=== PATIENT | female | born 1970 | race Hispanic/Latino ===

== ENCOUNTER 2018-01-25 22:44 | Inpatient (IN) | payer MEDICAID, OTHER ==
[~2018-01-25] VITALS: Ht 157.5 cm; Wt 53.8 kg
[~2018-01-25 22:44] MED LIST: AMLO5TAB2 PO; FURO40TA7 PO; LOVA20TA3 PO; METO50TA18 PO
[2018-01-25 23:54] LABS: BASOPHILS % (AUTO) 0.6 % (0.0-5.0); EOSINOPHILS % (AUTO) 0.7 % (0.0-8.0); HEMATOCRIT 26.9 % (36-48); LYMPHOCYTES % (AUTO) 8.3 % (21.0-51.0); MEAN CORPUSCULAR HEMOGLOBIN 28.7 pg (27.0-33.0); MEAN CORPUSCULAR HGB CONC 32.5 g/dL (32.0-36.0); MEAN CORPUSCULAR VOLUME 88.1 fL (79-99); MONOCYTES % (AUTO) 10.1 % (3.0-13.0); NEUTROPHILS % (AUTO) 80.3 % (40.0-77.0); NUCLEATED RED BLOOD CELLS 0.1 % (0.0-0.19); PLATELET COUNT (AUTO) 414 K/uL (130-400); RED BLOOD CELL COUNT(AUTO) 3.05 MIL/uL (4.00-5.50); RED CELL DISTRIBUTION WIDTH 17.4 % (11.0-15.5); WHITE BLOOD COUNT (AUTO) 10.3 K/uL (4.8-10.8)
[2018-01-26] VITALS (11 sets, daily range): BP systolic 127–148; BP diastolic 66–81
[2018-01-26 00:06] LABS: INR 1.06 (0.85-1.15); PARTIAL THROMBOPLASTIN TIME 24.9 SEC (26.3-35.5); PROTHROMBIN TIME 11.1 SEC (9.6-11.6)
[2018-01-26 00:23] LABS: BILIRUBIN,URINE Negative (NEGATIVE); COLOR,URINE Yellow (YELLOW); GLUCOSE, URINE (UA) TRACE mg/dL (NEGATIVE); KETONES,URINE Negative (NEGATIVE); LEUKOCYTE ESTERASE ,URINE Small (NEGATIVE); NITRATE,URINE Negative (NEGATIVE); OCCULT BLOOD,URINE Negative (NEGATIVE); PH,URINE 7.5 (5.0-8.0); PROTEIN,URINE POS 2+ (NEGATIVE); UROBILINOGEN,URINE 0.2 mg/dL (0.2-1.0)
[2018-01-26 00:24] LABS: APPEARANCE,URINE SLIGHTLY CLOUDY (CLEAR)
[2018-01-26 00:31] LABS: BACTERIA,URINE None Seen /HPF (None Seen); RBC,URINE None Seen /HPF (0-1); WBC,URINE 0-1 /HPF (0-1); YEAST,URINE BUDDING None Seen /HPF (None Seen)
[2018-01-26 00:32] LABS: MUCUS,URINE Few LPF (None Seen); SQUAMOUS EPITHELIAL CELL,UR Few /LPF (0-2)
[2018-01-26 00:33] LABS: AMPHET/METH SCREEN,URINE NEGATIVE (NEGATIVE); BARBITURATE SCREEN, URINE NEGATIVE (NEGATIVE); BENZODIAZEPINES SCREEN,URINE NEGATIVE (NEGATIVE); CANNABINOID SCREEN,URINE NEGATIVE (NEGATIVE); COCAINE SCREEN,URINE NEGATIVE (NEGATIVE); OPIATE SCREEN,URINE NEGATIVE (NEGATIVE); PHENCYCLIDINE SCREEN,URINE NEGATIVE (NEGATIVE)
[2018-01-26 00:38] LABS: ALBUMIN 2.8 g/dL (3.5-5.0); BILIRUBIN,TOTAL 0.8 mg/dL (0.2-1.0); CREATINE KINASE MB 3.7 ng/mL (0.5-3.6); CREATININE 6.7 mg/dL (0.5-1.5); POTASSIUM 5.8 mmol/L (3.5-5.1); TOTAL PROTEIN, SERUM 7.8 g/dL (6.0-8.3)
[2018-01-26] MEDS ORDERED: ACETAMINOPHEN 325 MG TAB PO PRN ×2 (05:00)
[2018-01-26] MEDS ORDERED: HYDRALAZINE HCL 20 MG/ML VIAL IV PRN (06:15)
[2018-01-26] MEDS ORDERED: IPRATROPIUM/ALBUTEROL SULFATE 3 ML SOLUTION IH ONE (07:25)
[2018-01-26] MEDS: IPRATROPIUM/ALBUTEROL SULFATE 3 ML SOLUTION IH SCH ×3 (07:44→18:46)
[2018-01-26] MEDS ORDERED: PANTOPRAZOLE SODIUM 40 MG TABLET.DR PO ONE (08:58)
[2018-01-26] MEDS ORDERED: HEPARIN SODIUM 5000UNIT/ML 1ML VIAL ONE (08:59)
[2018-01-26] MEDS ORDERED: FUROSEMIDE 10 MG/ML 4ML VIAL ONE (08:59)
[2018-01-26] MEDS ORDERED: FUROSEMIDE 10 MG/ML 4ML VIAL IVP SCH (09:00)
[2018-01-26] MEDS ORDERED: SODIUM POLYSTYRENE SULFONATE 15 GM/60 ML ML PO SCH (10:15)
[2018-01-26] MEDS ORDERED: COMPOUND IV MISC 1 EACH IVSOLN MISC PRN (10:15)
[2018-01-26] MEDS ORDERED: EPOETIN ALFA 10,000 UNIT/ML VIAL SQ SCH (10:15)
[2018-01-26] MEDS ORDERED: FURO40TA5 PO (10:53)
[2018-01-26] MEDS ORDERED: AMLO5TAB2 PO (10:53)
[2018-01-26] MEDS ORDERED: LOVA20TA3 PO (10:53)
[2018-01-26] MEDS ORDERED: METO100T14 PO (10:53)
[2018-01-26] MEDS ORDERED: ALBUMIN (HUMAN) 25% 200 ML IV ONE (15:00)
[2018-01-26 16:03] LABS: ALBUMIN,BODY FLUID 1.6 g/dL
[2018-01-26] MEDS: HEPARIN SODIUM 5000UNIT/ML 1ML VIAL SQ SCH ×2 (16:43→20:43)
[2018-01-26] MEDS: IRON SUCROSE COMPLEX 100 MG in SODIUM CHLORIDE 0.9% 50 ML IV SCH (16:44)
[2018-01-26] MEDS: PANTOPRAZOLE SODIUM 40 MG TABLET.DR PO SCH (16:44)
[2018-01-26 16:52] LABS: APPEARANCE BODY FLUID CLEAR (CLEAR); COLOR,BODY FLUID LT YELLOW (LT YELLOW); SPECIMENTYPE,BODY FLUID PARACENTESIS
[2018-01-26 16:53] LABS: BODY FLUID WBC 1285 /cu. mm.; TOTAL VOLUME,BODY FLUID 5200 mL
[2018-01-26 16:54] LABS: BODY FLUID RBC 50 /cu. mm.
[2018-01-26 17:51] LABS: BF BASOPHIL 1 %; BF LYMPHOCYTE 37 %; BF MESOTHELIAL 4 %; BF MONOCYTE 22 %
[2018-01-26] MEDS: FUROSEMIDE 10 MG/ML 4ML VIAL IVP SCH (20:42)
[2018-01-27] VITALS (18 sets, daily range): BP systolic 115–144; BP diastolic 44–74
[2018-01-27] MEDS: IPRATROPIUM/ALBUTEROL SULFATE 3 ML SOLUTION IH SCH ×5 (01:02→23:07)
[2018-01-27] MEDS ORDERED: MORPHINE SULFATE 2 MG/ML 1ML SYG ONE (01:26)
[2018-01-27 06:00] LABS: HEMATOCRIT 24.1 % (36-48); MEAN CORPUSCULAR HEMOGLOBIN 29.4 pg (27.0-33.0); MEAN CORPUSCULAR HGB CONC 33.5 g/dL (32.0-36.0); MEAN CORPUSCULAR VOLUME 87.7 fL (79-99); NUCLEATED RED BLOOD CELLS 0.1 % (0.0-0.19); PLATELET COUNT (AUTO) 332 K/uL (130-400); RED BLOOD CELL COUNT(AUTO) 2.75 MIL/uL (4.00-5.50); RED CELL DISTRIBUTION WIDTH 17.3 % (11.0-15.5); WHITE BLOOD COUNT (AUTO) 8.2 K/uL (4.8-10.8)
[2018-01-27 06:12] LABS: CREATININE 6.8 mg/dL (0.5-1.5); PHOSPHORUS 7.9 mg/dL (2.5-4.9); POTASSIUM 4.9 mmol/L (3.5-5.1)
[2018-01-27 06:15] LABS: LYMPHOCYTES % (MANUAL) 6 % (22-44); MAN.DIFF COMMENT-IMPRESSION MANUAL DIFFERENTIAL; MONOCYTES % (MANUAL) 3 % (2-9); SEGMENTED NEUTROPHILS % 91 % (40-70)
[2018-01-27 06:16] LABS: PLATELET MORPHOLOGY COMMENT ADEQUATE
[2018-01-27 08:10] LABS: HEPATITIS A ANTIBODY IGM Negative (Negative); HEPATITIS B CORE IGM Negative (Negative); HEPATITIS Bs ANTIGEN SCREEN P Negative (Negative)
[2018-01-27] MEDS ORDERED: MEPERIDINE-PF 50 MG/ML SYG ONE (09:48)
[2018-01-27] MEDS ORDERED: MIDAZOLAM HCL 1 MG/ML 2ML VIAL ONE (09:48)
[2018-01-27] MEDS ORDERED: LACTULOSE 20 GM/30 ML UDCUP PO SCH ×3 (11:00→14:00)
[2018-01-27] MEDS: PANTOPRAZOLE SODIUM 40 MG TABLET.DR PO SCH (11:06)
[2018-01-27] MEDS: HEPARIN SODIUM 5000UNIT/ML 1ML VIAL SQ SCH ×2 (11:08→20:55)
[2018-01-27] MEDS: FUROSEMIDE 10 MG/ML 4ML VIAL IVP SCH ×2 (11:09→20:55)
[2018-01-27] MEDS ORDERED: AZITHROMYCIN 500MG+NS 250ML 250 ML IV SCH (12:00)
[2018-01-27] MEDS: IRON SUCROSE COMPLEX 100 MG in SODIUM CHLORIDE 0.9% 50 ML IV SCH (13:08)
[2018-01-27] MEDS: INSULIN HUMULIN R 100 UNIT/ML 3ML SQ SCH ×2 (17:00→20:56)
[2018-01-28] VITALS (20 sets, daily range): BP systolic 129–158; BP diastolic 62–81
[2018-01-28] MEDS ORDERED: ERYTHROMYCIN LACTOBIONATE 500 MG in SODIUM CHLORIDE 0.9% 100 ML IV SCH (05:15)
[2018-01-28 06:08] LABS: HEMATOCRIT 26.9 % (36-48); MEAN CORPUSCULAR HEMOGLOBIN 29.6 pg (27.0-33.0); MEAN CORPUSCULAR HGB CONC 33.8 g/dL (32.0-36.0); MEAN CORPUSCULAR VOLUME 87.5 fL (79-99); PLATELET COUNT (AUTO) 372 K/uL (130-400); RED BLOOD CELL COUNT(AUTO) 3.07 MIL/uL (4.00-5.50); RED CELL DISTRIBUTION WIDTH 17.2 % (11.0-15.5); WHITE BLOOD COUNT (AUTO) 10.9 K/uL (4.8-10.8)
[2018-01-28 06:18] LABS: CREATININE 6.3 mg/dL (0.5-1.5); POTASSIUM 3.9 mmol/L (3.5-5.1)
[2018-01-28] MEDS: IPRATROPIUM/ALBUTEROL SULFATE 3 ML SOLUTION IH SCH ×3 (06:20→18:18)
[2018-01-28] MEDS: INSULIN HUMULIN R 100 UNIT/ML 3ML SQ SCH ×4 (07:30→21:25)
[2018-01-28] MEDS: HEPARIN SODIUM 5000UNIT/ML 1ML VIAL SQ SCH ×2 (09:00→21:00)
[2018-01-28] MEDS: PANTOPRAZOLE SODIUM 40 MG TABLET.DR PO SCH (09:00)
[2018-01-28] MEDS: FUROSEMIDE 10 MG/ML 4ML VIAL IVP SCH ×2 (09:07→21:30)
[2018-01-28] MEDS: IRON SUCROSE COMPLEX 100 MG in SODIUM CHLORIDE 0.9% 50 ML IV SCH (09:29)
[2018-01-28] MEDS ORDERED: PROPOFOL 10 MG/ML 20ML VIAL IV ONE ×2 (13:34)
[2018-01-28] MEDS ORDERED: LACTULOSE 20 GM/30 ML UDCUP PO SCH (15:30)
[2018-01-28] MEDS ORDERED: MAGNESIUM CITRATE 296 ML SOLUTION PO SCH (15:30)
[2018-01-28] MEDS ORDERED: PEG 3350/NA SULF,BICARB,CL/KCL 4000 ML SOLN PO SCH (16:00)
[2018-01-28] MEDS: MORPHINE SULFATE 2 MG/ML 1ML SYG IVP PRN ×2 (17:36→21:59)
[2018-01-28] MEDS ORDERED: ONDANSETRON HCL MDV 20ML 2 MG/ML VIAL ONE (22:53)
[2018-01-28] MEDS: ONDANSETRON HCL 4 MG/2 ML VIAL IV PRN (22:59)
[2018-01-29] MEDS: IPRATROPIUM/ALBUTEROL SULFATE 3 ML SOLUTION IH SCH ×4 (00:04→18:16)
[2018-01-29 03:45] VITALS: BP 138/74
[2018-01-29 04:35] LABS: HEMATOCRIT 25.9 % (36-48); MEAN CORPUSCULAR HEMOGLOBIN 28.7 pg (27.0-33.0); MEAN CORPUSCULAR HGB CONC 32.8 g/dL (32.0-36.0); MEAN CORPUSCULAR VOLUME 87.5 fL (79-99); PLATELET COUNT (AUTO) 373 K/uL (130-400); RED BLOOD CELL COUNT(AUTO) 2.96 MIL/uL (4.00-5.50)
[2018-01-29 04:55] LABS: CREATININE 5.6 mg/dL (0.5-1.5); POTASSIUM 3.6 mmol/L (3.5-5.1)
[2018-01-29] MEDS: ONDANSETRON HCL 4 MG/2 ML VIAL IV PRN (06:00)
[2018-01-29] MEDS: INSULIN HUMULIN R 100 UNIT/ML 3ML SQ SCH ×4 (06:53→20:56)
[2018-01-29 08:00] VITALS: BP 151/73
[2018-01-29] MEDS: PANTOPRAZOLE SODIUM 40 MG TABLET.DR PO SCH (09:00)
[2018-01-29] MEDS: HEPARIN SODIUM 5000UNIT/ML 1ML VIAL SQ SCH ×2 (09:00→21:00)
[2018-01-29] MEDS ORDERED: MORPHINE SULFATE 4 MG/1ML SYG ONE ×2 (10:27→16:06)
[2018-01-29] MEDS: IRON SUCROSE COMPLEX 100 MG in SODIUM CHLORIDE 0.9% 50 ML IV SCH (10:39)
[2018-01-29] MEDS: FUROSEMIDE 10 MG/ML 4ML VIAL IVP SCH ×2 (10:39→20:53)
[2018-01-29] MEDS: MORPHINE SULFATE 2 MG/ML 1ML SYG IVP PRN ×3 (10:40→20:56)
[2018-01-29 11:00] VITALS: BP 146/68
[2018-01-29 16:00] VITALS: BP 127/68
[2018-01-29] MEDS ORDERED: PEG 3350/NA SULF,BICARB,CL/KCL 4000 ML SOLN PO SCH (17:00)
[2018-01-29 19:30] VITALS: BP 163/80
[2018-01-29 23:15] VITALS: BP 154/76
[2018-01-30] MEDS: IPRATROPIUM/ALBUTEROL SULFATE 3 ML SOLUTION IH SCH ×5 (00:07→23:46)
[2018-01-30 03:15] VITALS: BP 142/76
[2018-01-30 04:13] LABS: HEMATOCRIT 24.9 % (36-48); MEAN CORPUSCULAR HEMOGLOBIN 29.4 pg (27.0-33.0); MEAN CORPUSCULAR HGB CONC 33.4 g/dL (32.0-36.0); MEAN CORPUSCULAR VOLUME 88.1 fL (79-99); PLATELET COUNT (AUTO) 351 K/uL (130-400); RED BLOOD CELL COUNT(AUTO) 2.83 MIL/uL (4.00-5.50); RED CELL DISTRIBUTION WIDTH 17.8 % (11.0-15.5); WHITE BLOOD COUNT (AUTO) 10.7 K/uL (4.8-10.8)
[2018-01-30 04:19] LABS: CREATININE 5.2 mg/dL (0.5-1.5); POTASSIUM 3.8 mmol/L (3.5-5.1)
[2018-01-30] MEDS: MORPHINE SULFATE 2 MG/ML 1ML SYG IVP PRN ×2 (05:08→21:58)
[2018-01-30 07:12] LABS: BAND NEUTROPHILS % (MANUAL) 1 % (0-2); EOSINOPHILS % (MANUAL) 1 % (1-6); LYMPHOCYTES % (MANUAL) 8 % (22-44); MAN.DIFF COMMENT-IMPRESSION MANUAL DIFFERENTIAL; MONOCYTES % (MANUAL) 5 % (2-9); SEGMENTED NEUTROPHILS % 85 % (40-70)
[2018-01-30 07:15] LABS: PLATELET MORPHOLOGY COMMENT ADEQUATE
[2018-01-30] MEDS: INSULIN HUMULIN R 100 UNIT/ML 3ML SQ SCH ×4 (07:30→21:00)
[2018-01-30 08:00] VITALS: BP 139/72
[2018-01-30] MEDS: HEPARIN SODIUM 5000UNIT/ML 1ML VIAL SQ SCH ×2 (09:00→21:57)
[2018-01-30] MEDS: IRON SUCROSE COMPLEX 100 MG in SODIUM CHLORIDE 0.9% 50 ML IV SCH (10:02)
[2018-01-30] MEDS: FUROSEMIDE 10 MG/ML 4ML VIAL IVP SCH ×2 (10:03→21:58)
[2018-01-30 11:00] VITALS: BP 143/65
[2018-01-30 16:00] VITALS: BP 158/76
[2018-01-30] MEDS ORDERED: LACTULOSE 20 GM/30 ML UDCUP PO SCH (16:00)
[2018-01-30] MEDS ORDERED: PEG 3350/NA SULF,BICARB,CL/KCL 4000 ML SOLN PO SCH (16:00)
[2018-01-30] MEDS: PANTOPRAZOLE SODIUM 40 MG TABLET.DR PO SCH (16:47)
[2018-01-30] MEDS: BISACODYL 5 MG TABLET.DR PO SCH (18:00)
[2018-01-30 20:00] VITALS: BP 144/71
[2018-01-30 23:50] VITALS: BP 143/71
[2018-01-31 04:00] VITALS: BP 157/69
[2018-01-31 04:12] LABS: HEMATOCRIT 22.8 % (36-48); MEAN CORPUSCULAR HEMOGLOBIN 28.8 pg (27.0-33.0); MEAN CORPUSCULAR HGB CONC 32.8 g/dL (32.0-36.0); MEAN CORPUSCULAR VOLUME 87.9 fL (79-99); PLATELET COUNT (AUTO) 316 K/uL (130-400); RED CELL DISTRIBUTION WIDTH 17.8 % (11.0-15.5); WHITE BLOOD COUNT (AUTO) 11.2 K/uL (4.8-10.8)
[2018-01-31 04:20] LABS: CREATININE 5.1 mg/dL (0.5-1.5); POTASSIUM 3.3 mmol/L (3.5-5.1)
[2018-01-31 04:35] LABS: LYMPHOCYTES % (MANUAL) 10 % (22-44); MAN.DIFF COMMENT-IMPRESSION MANUAL DIFFERENTIAL; MONOCYTES % (MANUAL) 1 % (2-9); PLATELET MORPHOLOGY COMMENT ADEQUATE; SEGMENTED NEUTROPHILS % 89 % (40-70)
[2018-01-31] MEDS: INSULIN HUMULIN R 100 UNIT/ML 3ML SQ SCH ×3 (06:10→16:18)
[2018-01-31] MEDS: IPRATROPIUM/ALBUTEROL SULFATE 3 ML SOLUTION IH SCH ×2 (06:18→11:32)
[2018-01-31 08:00] VITALS: BP 131/76
[2018-01-31] MEDS: IRON SUCROSE COMPLEX 100 MG in SODIUM CHLORIDE 0.9% 50 ML IV SCH (09:22)
[2018-01-31] MEDS: PANTOPRAZOLE SODIUM 40 MG TABLET.DR PO SCH (09:25)
[2018-01-31] MEDS: FUROSEMIDE 10 MG/ML 4ML VIAL IVP SCH (09:25)
[2018-01-31] MEDS: HEPARIN SODIUM 5000UNIT/ML 1ML VIAL SQ SCH (09:31)
[2018-01-31] MEDS: MORPHINE SULFATE 2 MG/ML 1ML SYG IVP PRN (09:47)
[2018-01-31 11:00] VITALS: BP 133/79
[2018-01-31 16:00] VITALS: BP 152/70
[2018-01-31] MEDS: BISACODYL 5 MG TABLET.DR PO SCH (16:19)
[2018-03-25] MEDS ORDERED: AMLO5TAB2 PO (03:23)
== END 2018-01-31 18:50 | disposition home or self-care (01) | DRG 187 ==
LOC: EDH 22:44 → EDHIP 22:45 → 3BH 01-26 10:45
PROVIDERS: ADMIT Family Medicine; ATTEND Family Medicine
PROC: 0W9G3ZZ Drainage of Peritoneal Cavity, Percutaneous Approach (ICD-10-PCS; 2018-01-26)
PROC: 0DJ08ZZ Inspection of Upper Intestinal Tract, Via Natural or Artificial Opening Endoscopic (ICD-10-PCS; principal; 2018-01-27)
DX: J90 Pleural effusion, not elsewhere classified (principal); N17.9 Acute kidney failure, unspecified; E11.21 Type 2 diabetes mellitus with diabetic nephropathy; R18.8 Other ascites; E87.1 Hypo-osmolality and hyponatremia; E87.5 Hyperkalemia; I12.0 Hypertensive chronic kidney disease with stage 5 chronic kidney disease or end stage renal disease; N18.5 Chronic kidney disease, stage 5; K74.60 Unspecified cirrhosis of liver; K75.81 Nonalcoholic steatohepatitis (NASH); Z53.20 Procedure and treatment not carried out because of patient's decision for unspecified reasons; D50.9 Iron deficiency anemia, unspecified; E11.22 Type 2 diabetes mellitus with diabetic chronic kidney disease; E87.70 Fluid overload, unspecified; I25.10 Atherosclerotic heart disease of native coronary artery without angina pectoris; K27.9 Peptic ulcer, site unspecified, unspecified as acute or chronic, without hemorrhage or perforation; Z82.49 Family history of ischemic heart disease and other diseases of the circulatory system; Z83.3 Family history of diabetes mellitus; Z79.84 Long term (current) use of oral hypoglycemic drugs
CPT/HCPCS: 36415; 49083; 71046; 74176; 76700; 80048; 80053; 80074; 80305; 81001; 82042; 82140; 82550; 82553; 82945; 82948; 83615; 83690; 83735; 83874; 84100; 84157; 84484; 85025; 85027; 85610; 85730; 87071; 87205; 89051; 93005; 94640; 94664; 99152; J0456; J0885; J1364; J1644; J1756; J1815; J1940; J2175; J2250; J2270; J2704; P9046

== ENCOUNTER 2018-02-25 00:50 | Inpatient (IN) | payer MEDICAID, OTHER ==
[2018-02-25] VITALS (8 sets, daily range): BP systolic 131–143; BP diastolic 62–77
[~2018-02-25] VITALS: Ht 157.5 cm; Wt 66.1 kg
[~2018-02-25 00:50] MED LIST changes: +FURO40TA5 PO; -FURO40TA7 PO; +METO100T14 PO; -METO50TA18 PO
[2018-02-25 02:04] LABS: BASOPHILS % (AUTO) 1.1 % (0.0-5.0); EOSINOPHILS % (AUTO) 2.7 % (0.0-8.0); HEMATOCRIT 29.8 % (36-48); LYMPHOCYTES % (AUTO) 12.5 % (21.0-51.0); MEAN CORPUSCULAR HEMOGLOBIN 30.5 pg (27.0-33.0); MEAN CORPUSCULAR HGB CONC 32.5 g/dL (32.0-36.0); MEAN CORPUSCULAR VOLUME 93.7 fL (79-99); NEUTROPHILS % (AUTO) 72.7 % (40.0-77.0); NUCLEATED RED BLOOD CELLS 0.1 % (0.0-0.19); PLATELET COUNT (AUTO) 224 K/uL (130-400); RED BLOOD CELL COUNT(AUTO) 3.18 MIL/uL (4.00-5.50); RED CELL DISTRIBUTION WIDTH 18.9 % (11.0-15.5); WHITE BLOOD COUNT (AUTO) 7.2 K/uL (4.8-10.8)
[2018-02-25 02:19] LABS: BILIRUBIN,TOTAL 0.7 mg/dL (0.2-1.0); CREATININE 4.8 mg/dL (0.5-1.5)
[2018-02-25 02:21] LABS: POTASSIUM 6.2 mmol/L (3.5-5.1)
[2018-02-25 02:52] LABS: APPEARANCE,URINE Clear (CLEAR); BILIRUBIN,URINE Negative (NEGATIVE); COLOR,URINE Yellow (YELLOW); GLUCOSE, URINE (UA) Negative (NEGATIVE); KETONES,URINE Negative (NEGATIVE); LEUKOCYTE ESTERASE ,URINE Negative (NEGATIVE); NITRATE,URINE Negative (NEGATIVE); OCCULT BLOOD,URINE Trace (NEGATIVE); PROTEIN,URINE POS 2+ (NEGATIVE); UROBILINOGEN,URINE 0.2 mg/dL (0.2-1.0)
[2018-02-25] MEDS ORDERED: SODIUM POLYSTYRENE SULFONATE 15 GM/60 ML ML ONE (03:07)
[2018-02-25 03:09] LABS: BACTERIA,URINE Rare /HPF (None Seen); RBC,URINE None Seen /HPF (0-1); WBC,URINE 0-1 /HPF (0-1)
[2018-02-25] MEDS ORDERED: FUROSEMIDE 10 MG/ML 4ML VIAL ONE (03:58)
[2018-02-25] MEDS ORDERED: DEXTROSE 50%-WATER 50 ML DISP.SYRIN IV PRN (04:45)
[2018-02-25] MEDS ORDERED: ONDANSETRON HCL MDV 20ML 2 MG/ML VIAL IVP PRN (04:45)
[2018-02-25] MEDS ORDERED: HYDRALAZINE HCL 20 MG/ML VIAL IV PRN (04:45)
[2018-02-25] MEDS ORDERED: GLUCAGON 1MG KIT 1 MG ML IM PRN (04:45)
[2018-02-25] MEDS: HEPARIN SODIUM 5000UNIT/ML 1ML VIAL SQ SCH ×2 (05:00→17:00)
[2018-02-25] MEDS ORDERED: HEPARIN SODIUM 5000UNIT/ML 1ML VIAL ONE (05:20)
[2018-02-25 07:30] LABS: ALBUMIN 2.7 g/dL (3.5-5.0); BILIRUBIN,DIRECT 0.2 mg/dL (0.0-0.3); BILIRUBIN,TOTAL 0.7 mg/dL (0.2-1.0); TOTAL PROTEIN, SERUM 7.1 g/dL (6.0-8.3)
[2018-02-25] MEDS: INSULIN HUMULIN R 100 UNIT/ML 3ML SQ SCH ×4 (07:30→20:50)
[2018-02-25] MEDS ORDERED: FAMOTIDINE 20MG TAB 20 MG TAB ONE (08:35)
[2018-02-25] MEDS ORDERED: METOPROLOL TARTRATE 50 MG TAB ONE (08:36)
[2018-02-25] MEDS ORDERED: AMLODIPINE BESYLATE 5 MG TAB PO ONE (08:36)
[2018-02-25] MEDS: AMLODIPINE BESYLATE 5 MG TAB PO SCH (09:00)
[2018-02-25] MEDS ORDERED: PANTOPRAZOLE 40 MG/VIAL IVP SCH (09:00)
[2018-02-25] MEDS: LOVASTATIN 20 MG PO SCH (09:00)
[2018-02-25] MEDS: METOPROLOL TARTRATE 50 MG TAB PO SCH ×2 (09:00→20:50)
[2018-02-25] MEDS: FOLIC ACID/VITAMIN B COMP W-C 1 MG CAPSULE PO SCH (09:00)
[2018-02-25] MEDS: PANTOPRAZOLE SODIUM 40 MG TABLET.DR PO SCH (09:00)
[2018-02-25 09:58] LABS: CREATININE 4.7 mg/dL (0.5-1.5); POTASSIUM 5.9 mmol/L (3.5-5.1)
[2018-02-25 10:31] LABS: INR 1.05 (0.85-1.15); PARTIAL THROMBOPLASTIN TIME 25.6 SEC (26.3-35.5); PROTHROMBIN TIME 10.8 SEC (9.6-11.6)
[2018-02-25] MEDS ORDERED: LIDOCAINE HCL 1% MDV 50ML VIAL ONE (10:35)
[2018-02-25] MEDS: FUROSEMIDE 10 MG/ML 2ML VIAL IV SCH (13:00)
[2018-02-25 13:37] LABS: APPEARANCE BODY FLUID CLEAR (CLEAR); BODY FLUID WBC 454 /cu. mm.; COLOR,BODY FLUID YELLOW (LT YELLOW); SPECIMENTYPE,BODY FLUID ASCITES; TOTAL VOLUME,BODY FLUID 4000 mL
[2018-02-25 13:38] LABS: BODY FLUID RBC 77 /cu. mm.
[2018-02-25 13:43] LABS: BF BASOPHIL 1 %; BF LYMPHOCYTE 40 %; BF MESOTHELIAL 53 %; BF MONOCYTE 3 %
[2018-02-25 14:10] LABS: CREATININE 4.7 mg/dL (0.5-1.5); POTASSIUM 5.9 mmol/L (3.5-5.1)
[2018-02-25] MEDS: ACETAMINOPHEN 325 MG TAB PO PRN (20:50)
[2018-02-26 00:25] VITALS: BP 146/75
[2018-02-26 00:27] LABS: HEMATOCRIT 25.1 % (36-48)
[2018-02-26 00:37] LABS: CREATININE 3.5 mg/dL (0.5-1.5)
[2018-02-26 00:46] LABS: HEMOGLOBIN A1C 7.9 % (4.0-6.0)
[2018-02-26 01:11] LABS: FERRITIN 264 ng/mL (15-150); IRON, SERUM 35 mcg/dL (50-170)
[2018-02-26] MEDS: FUROSEMIDE 10 MG/ML 2ML VIAL IV SCH ×2 (02:15→13:00)
[2018-02-26] MEDS: ACETAMINOPHEN 325 MG TAB PO PRN (02:22)
[2018-02-26 04:20] VITALS: BP 148/69
[2018-02-26] MEDS: HEPARIN SODIUM 5000UNIT/ML 1ML VIAL SQ SCH ×2 (05:28→18:31)
[2018-02-26] MEDS: INSULIN HUMULIN R 100 UNIT/ML 3ML SQ SCH ×3 (05:55→16:30)
[2018-02-26 06:21] LABS: HEMATOCRIT 25.4 % (36-48); MEAN CORPUSCULAR HEMOGLOBIN 29.9 pg (27.0-33.0); MEAN CORPUSCULAR HGB CONC 32.4 g/dL (32.0-36.0); MEAN CORPUSCULAR VOLUME 92.3 fL (79-99); PLATELET COUNT (AUTO) 173 K/uL (130-400); RED BLOOD CELL COUNT(AUTO) 2.76 MIL/uL (4.00-5.50); WHITE BLOOD COUNT (AUTO) 5.7 K/uL (4.8-10.8)
[2018-02-26] MEDS ORDERED: HEPARIN SODIUM 5000UNIT/ML 1ML VIAL IJ PRN (06:30)
[2018-02-26] MEDS ORDERED: ALBUMIN (HUMAN) 25% 100 ML IV PRN (06:30)
[2018-02-26] MEDS ORDERED: 0.9% SODIUM CHLORIDE 250 ML IV BAG IV PRN (06:30)
[2018-02-26] MEDS ORDERED: SODIUM CHLORIDE 0.9% 1000ML 1,000 ML IV PRN (06:30)
[2018-02-26 06:39] LABS: CREATININE 3.3 mg/dL (0.5-1.5); POTASSIUM 4.1 mmol/L (3.5-5.1)
[2018-02-26 08:34] VITALS: BP 148/72
[2018-02-26] MEDS: LOVASTATIN 20 MG PO SCH (09:00)
[2018-02-26] MEDS: FOLIC ACID/VITAMIN B COMP W-C 1 MG CAPSULE PO SCH (09:23)
[2018-02-26] MEDS: PANTOPRAZOLE SODIUM 40 MG TABLET.DR PO SCH (09:23)
[2018-02-26] MEDS: AMLODIPINE BESYLATE 5 MG TAB PO SCH (09:23)
[2018-02-26] MEDS: METOPROLOL TARTRATE 50 MG TAB PO SCH (09:23)
[2018-02-26 12:02] VITALS: BP 119/87
[2018-02-26] MEDS ORDERED: LEVOFLOXACIN 500 MG/D5W 100 ML 100 ML IV SCH (12:30)
[2018-02-26] MEDS ORDERED: LEVO250T2 PO (12:34)
[2018-02-26 16:58] VITALS: BP 146/72
[2018-02-27 08:25] LABS: HEPATITIS B CORE IGM Negative (Negative); HEPATITIS Bs ANTIGEN SCREEN P Negative (Negative)
[2018-03-25] MEDS ORDERED: AMLO5TAB2 PO (03:23)
== END 2018-02-26 18:45 | disposition home or self-care (01) | DRG 683 ==
LOC: EDH 00:50 → EDHIP 00:51 → 3AH 11:52
PROVIDERS: ADMIT Family Medicine; ATTEND Family Medicine
PROC: 02H633Z Insertion of Infusion Device into Right Atrium, Percutaneous Approach (ICD-10-PCS; principal; 2018-02-25)
PROC: B244ZZZ Ultrasonography of Right Heart (ICD-10-PCS; 2018-02-25)
PROC: 5A1D70Z Performance of Urinary Filtration, Intermittent, Less than 6 Hours Per Day (ICD-10-PCS; 2018-02-25)
PROC: 0W9G3ZZ Drainage of Peritoneal Cavity, Percutaneous Approach (ICD-10-PCS; 2018-02-25)
PROC: 5A1D70Z Performance of Urinary Filtration, Intermittent, Less than 6 Hours Per Day (ICD-10-PCS; 2018-02-26)
DX: N17.9 Acute kidney failure, unspecified (principal); J90 Pleural effusion, not elsewhere classified; E11.22 Type 2 diabetes mellitus with diabetic chronic kidney disease; R18.8 Other ascites; E87.5 Hyperkalemia; I12.0 Hypertensive chronic kidney disease with stage 5 chronic kidney disease or end stage renal disease; E87.70 Fluid overload, unspecified; N18.5 Chronic kidney disease, stage 5; K75.81 Nonalcoholic steatohepatitis (NASH); I25.10 Atherosclerotic heart disease of native coronary artery without angina pectoris; D63.8 Anemia in other chronic diseases classified elsewhere; Z99.2 Dependence on renal dialysis
CPT/HCPCS: 36415; 36556; 49083; 71045; 71046; 76700; 76705; 80048; 80053; 80061; 80076; 81001; 82140; 82565; 82728; 82948; 83036; 83540; 83690; 83880; 84484; 84520; 85014; 85018; 85025; 85027; 85610; 85730; 86701; 86704; 86705; 86706; 87071; 87205; 87340; 87390; 87520; 89051; 90935; 93005; C1752; J1644; J1940; J1956; J3490

== ENCOUNTER 2018-02-28 18:39 | Emergency (ER) | payer MEDICAID, OTHER ==
[~2018-02-28 18:39] MED LIST changes: +LEVO250T2 PO
[2018-03-25] MEDS ORDERED: AMLO5TAB2 PO (03:23)
== END 2018-02-28 19:30 | disposition home or self-care (01) ==
LOC: EDH 18:39
DX: Z48.00 Encounter for change or removal of nonsurgical wound dressing (principal); E11.22 Type 2 diabetes mellitus with diabetic chronic kidney disease; I12.9 Hypertensive chronic kidney disease with stage 1 through stage 4 chronic kidney disease, or unspecified chronic kidney disease; N18.9 Chronic kidney disease, unspecified; I25.10 Atherosclerotic heart disease of native coronary artery without angina pectoris
CPT/HCPCS: 99281

== ENCOUNTER 2018-03-17 16:11 | Inpatient (IN) | payer MEDICAID, OTHER ==
[~2018-03-17] VITALS: Ht 144.8 cm; Wt 65.8 kg
[2018-03-17] MEDS ORDERED: HYDROMORPHONE HCL 0.5 MG/0.5 ML ML ONE (16:41)
[2018-03-17] MEDS ORDERED: ONDANSETRON HCL 4 MG/2 ML VIAL ONE (16:41)
[2018-03-17 16:47] LABS: BASOPHILS % (AUTO) 0.6 % (0.0-5.0); EOSINOPHILS % (AUTO) 0.5 % (0.0-8.0); HEMATOCRIT 27.5 % (36-48); LYMPHOCYTES % (AUTO) 3.3 % (21.0-51.0); MEAN CORPUSCULAR HEMOGLOBIN 28.7 pg (27.0-33.0); MEAN CORPUSCULAR HGB CONC 31.7 g/dL (32.0-36.0); MEAN CORPUSCULAR VOLUME 90.4 fL (79-99); MONOCYTES % (AUTO) 6.2 % (3.0-13.0); NEUTROPHILS % (AUTO) 89.4 % (40.0-77.0); PLATELET COUNT (AUTO) 378 K/uL (130-400); RED BLOOD CELL COUNT(AUTO) 3.04 MIL/uL (4.00-5.50); RED CELL DISTRIBUTION WIDTH 17.5 % (11.0-15.5); WHITE BLOOD COUNT (AUTO) 17.7 K/uL (4.8-10.8)
[2018-03-17] MEDS ORDERED: HYDROMORPHONE 1 MG/1 ML AMP ONE (17:02)
[2018-03-17 17:07] LABS: ALBUMIN 1.8 g/dL (3.5-5.0); BILIRUBIN,TOTAL 3.2 mg/dL (0.2-1.0); CREATININE 6.7 mg/dL (0.5-1.5); POTASSIUM 5.1 mmol/L (3.5-5.1); TOTAL PROTEIN, SERUM 6.8 g/dL (6.0-8.3)
[2018-03-17 17:13] LABS: INR 1.09 (0.85-1.15); PARTIAL THROMBOPLASTIN TIME 29.8 SEC (26.3-35.5); PROTHROMBIN TIME 11.4 SEC (9.6-11.6)
[2018-03-17] MEDS ORDERED: ALBUMIN (HUMAN) 25% 100 ML IV ONE (20:14)
[2018-03-17 21:05] VITALS: BP 90/61
[2018-03-17] MEDS ORDERED: DEXTROSE 50%-WATER 50 ML DISP.SYRIN IV PRN (22:00)
[2018-03-17] MEDS ORDERED: GLUCAGON 1MG KIT 1 MG ML IM PRN (22:00)
[2018-03-17] MEDS ORDERED: PHARMACY COMMUNICATION MISC SCH (23:45)
[2018-03-17] MEDS ORDERED: ONDANSETRON HCL MDV 20ML 2 MG/ML VIAL IVP PRN (23:45)
[2018-03-18] VITALS (13 sets, daily range): BP systolic 92–120; BP diastolic 39–61
[2018-03-18] MEDS ORDERED: ATOR10 PO (00:39)
[2018-03-18] MEDS ORDERED: FURO40TA5 PO (00:39)
[2018-03-18] MEDS ORDERED: METO100T14 PO (00:39)
[2018-03-18] MEDS: IPRATROPIUM/ALBUTEROL SULFATE 3 ML SOLUTION IH SCH ×5 (01:53→22:53)
[2018-03-18] MEDS: HYDROMORPHONE 1 MG/1 ML AMP IVP PRN ×2 (03:12→18:52)
[2018-03-18] MEDS: ZOSYN 3.375GM+NS 50ML 50 ML IV SCH ×3 (03:12→23:43)
[2018-03-18 06:26] LABS: HEMATOCRIT 21.9 % (36-48); MEAN CORPUSCULAR HEMOGLOBIN 29.5 pg (27.0-33.0); MEAN CORPUSCULAR HGB CONC 33.6 g/dL (32.0-36.0); MEAN CORPUSCULAR VOLUME 87.9 fL (79-99); NUCLEATED RED BLOOD CELLS 0.1 % (0.0-0.19); PLATELET COUNT (AUTO) 358 K/uL (130-400); RED BLOOD CELL COUNT(AUTO) 2.49 MIL/uL (4.00-5.50); RED CELL DISTRIBUTION WIDTH 17.7 % (11.0-15.5); WHITE BLOOD COUNT (AUTO) 15.8 K/uL (4.8-10.8)
[2018-03-18 06:34] LABS: ALBUMIN 1.9 g/dL (3.5-5.0); BILIRUBIN,TOTAL 2.9 mg/dL (0.2-1.0); CREATININE 6.8 mg/dL (0.5-1.5); POTASSIUM 5.5 mmol/L (3.5-5.1); TOTAL PROTEIN, SERUM 6.3 g/dL (6.0-8.3)
[2018-03-18] MEDS: INSULIN HUMULIN R 100 UNIT/ML 3ML SQ SCH ×4 (07:04→21:00)
[2018-03-18] MEDS ORDERED: HEPARIN SODIUM 5000UNIT/ML 1ML VIAL SQ SCH (09:00)
[2018-03-18] MEDS: FAMOTIDINE 20MG TAB 20 MG TAB PO SCH (10:12)
[2018-03-18] MEDS ORDERED: VANCOMYCIN PROTOCOL PER PHARMACY IV SCH (10:45)
[2018-03-18] MEDS ORDERED: SODIUM POLYSTYRENE SULFONATE 15 GM/60 ML ML ONE (11:02)
[2018-03-18] MEDS ORDERED: COMPOUND IV REFRIGERATED 1 EACH IVSOLN MISC PRN (11:45)
[2018-03-18] MEDS ORDERED: VANCOMYCIN 1.25 GM in SODIUM CHLORIDE 0.9% 250 ML IV ONE (12:00)
[2018-03-18] MEDS ORDERED: SODIUM POLYSTYRENE SULFONATE 15 GM/60 ML ML PO ONE (12:20)
[2018-03-18 14:05] LABS: APPEARANCE,URINE Cloudy (CLEAR); BILIRUBIN,URINE Negative (NEGATIVE); COLOR,URINE Yellow (YELLOW); GLUCOSE, URINE (UA) Negative (NEGATIVE); KETONES,URINE Negative (NEGATIVE); LEUKOCYTE ESTERASE ,URINE Moderate (NEGATIVE); NITRATE,URINE Negative (NEGATIVE); OCCULT BLOOD,URINE Large (NEGATIVE); PROTEIN,URINE POS 2+ (NEGATIVE); UROBILINOGEN,URINE 0.2 mg/dL (0.2-1.0)
[2018-03-18 14:27] LABS: BACTERIA,URINE Many /HPF (None Seen); RBC,URINE 0-1 /HPF (0-1); SQUAMOUS EPITHELIAL CELL,UR Moderate /HPF (0-2)
[2018-03-18] MEDS ORDERED: SODIUM POLYSTYRENE SULFONATE 15 GM/60 ML ML PO SCH (15:30)
[2018-03-18] MEDS: FUROSEMIDE 10 MG/ML 4ML VIAL IV SCH (18:44)
[2018-03-18] MEDS ORDERED: KETOROLAC TROMETHAMINE 15MG/ML IV PRN (23:15)
[2018-03-19] MEDS: HYDROMORPHONE 1 MG/1 ML AMP IVP PRN ×2 (01:19→13:38)
[2018-03-19] MEDS: IPRATROPIUM/ALBUTEROL SULFATE 3 ML SOLUTION IH SCH ×3 (02:18→10:00)
[2018-03-19] MEDS: FUROSEMIDE 10 MG/ML 4ML VIAL IV SCH ×2 (02:31→13:38)
[2018-03-19 04:00] VITALS: BP 116/55
[2018-03-19 05:06] LABS: BASOPHILS % (AUTO) 0.6 % (0.0-5.0); EOSINOPHILS % (AUTO) 0.3 % (0.0-8.0); LYMPHOCYTES % (AUTO) 4.2 % (21.0-51.0); MEAN CORPUSCULAR HEMOGLOBIN 30.3 pg (27.0-33.0); MEAN CORPUSCULAR HGB CONC 34.1 g/dL (32.0-36.0); MEAN CORPUSCULAR VOLUME 88.6 fL (79-99); MONOCYTES % (AUTO) 8.3 % (3.0-13.0); NEUTROPHILS % (AUTO) 86.6 % (40.0-77.0); NUCLEATED RED BLOOD CELLS 0.1 % (0.0-0.19); PLATELET COUNT (AUTO) 346 K/uL (130-400); RED BLOOD CELL COUNT(AUTO) 2.31 MIL/uL (4.00-5.50); RED CELL DISTRIBUTION WIDTH 17.9 % (11.0-15.5); WHITE BLOOD COUNT (AUTO) 14.9 K/uL (4.8-10.8)
[2018-03-19 05:13] LABS: INR 1.05 (0.85-1.15); PARTIAL THROMBOPLASTIN TIME 34.8 SEC (26.3-35.5)
[2018-03-19 05:20] LABS: HEMATOCRIT 20.5 % (36-48)
[2018-03-19 05:28] LABS: CREATININE 7.2 mg/dL (0.5-1.5); MAGNESIUM 2.1 mg/dL (1.80-2.40); PHOSPHORUS 7.3 mg/dL (2.5-4.9); POTASSIUM 4.9 mmol/L (3.5-5.1); URIC ACID 8.5 mg/dL (2.6-7.2)
[2018-03-19] MEDS: INSULIN HUMULIN R 100 UNIT/ML 3ML SQ SCH ×2 (05:46→11:30)
[2018-03-19 08:35] VITALS: BP 127/63
[2018-03-19] MEDS: FAMOTIDINE 20MG TAB 20 MG TAB PO SCH ×2 (09:00→10:41)
[2018-03-19] MEDS ORDERED: AMOX-426 PO (11:38)
[2018-03-19 12:53] VITALS: BP 142/72
[2018-03-19 16:00] VITALS: BP 138/72
[2018-03-20] MEDS ORDERED: VANCOMYCIN 1GM+NS 250ML 250 ML IV NR (15:00)
[2018-03-25] MEDS ORDERED: AMLO5TAB2 PO (03:23)
== END 2018-03-19 18:30 | disposition home or self-care (01) | DRG 689 ==
LOC: EDH 16:11 → EDHIP 16:12 → 3DH 21:10
PROVIDERS: ADMIT Family Medicine; ATTEND Family Medicine
PROC: 30233N1 Transfusion of Nonautologous Red Blood Cells into Peripheral Vein, Percutaneous Approach (ICD-10-PCS; principal; 2018-03-17)
PROC: 0W9G3ZZ Drainage of Peritoneal Cavity, Percutaneous Approach (ICD-10-PCS; 2018-03-17)
DX: N39.0 Urinary tract infection, site not specified (principal); N18.6 End stage renal disease; J90 Pleural effusion, not elsewhere classified; R18.8 Other ascites; E11.22 Type 2 diabetes mellitus with diabetic chronic kidney disease; N17.9 Acute kidney failure, unspecified; E87.2 Acidosis; E87.5 Hyperkalemia; I12.0 Hypertensive chronic kidney disease with stage 5 chronic kidney disease or end stage renal disease; D63.8 Anemia in other chronic diseases classified elsewhere; E87.70 Fluid overload, unspecified; I25.10 Atherosclerotic heart disease of native coronary artery without angina pectoris; K74.60 Unspecified cirrhosis of liver; Z99.2 Dependence on renal dialysis; Z82.49 Family history of ischemic heart disease and other diseases of the circulatory system; Z83.3 Family history of diabetes mellitus
CPT/HCPCS: 36415; 49083; 71045; 71250; 73501; 74176; 76770; 80048; 80053; 81001; 82140; 82550; 82553; 82948; 83690; 83735; 84100; 84132; 84484; 84550; 85025; 85027; 85610; 85730; 86850; 86900; 86901; 86922; 87040; 93005; 93970; 94640; 94664; J0885; J1170; J1644; J1756; J1885; J1940; J2270; J2405; J2543; J3370; J7030; P9016; P9046

== ENCOUNTER 2018-03-20 18:17 | Inpatient (IN) | payer MEDICAID, OTHER ==
[~2018-03-20] VITALS: Ht 144.8 cm; Wt 66.3 kg
[~2018-03-20 18:17] MED LIST changes: -AMLO5TAB2 PO; +AMOX-426 PO; +ATOR10 PO; -LEVO250T2 PO; -LOVA20TA3 PO
[2018-03-20 19:12] LABS: BASOPHILS % (AUTO) 0.5 % (0.0-5.0); EOSINOPHILS % (AUTO) 0.7 % (0.0-8.0); HEMATOCRIT 23.2 % (36-48); LYMPHOCYTES % (AUTO) 3.9 % (21.0-51.0); MEAN CORPUSCULAR HEMOGLOBIN 28.7 pg (27.0-33.0); MEAN CORPUSCULAR VOLUME 86.9 fL (79-99); NEUTROPHILS % (AUTO) 86.9 % (40.0-77.0); NUCLEATED RED BLOOD CELLS 0.1 % (0.0-0.19); PLATELET COUNT (AUTO) 323 K/uL (130-400); RED BLOOD CELL COUNT(AUTO) 2.67 MIL/uL (4.00-5.50); RED CELL DISTRIBUTION WIDTH 17.3 % (11.0-15.5)
[2018-03-20 19:59] LABS: ALBUMIN 1.7 g/dL (3.5-5.0); BILIRUBIN,TOTAL 2.1 mg/dL (0.2-1.0); CREATININE 7.4 mg/dL (0.5-1.5); POTASSIUM 4.8 mmol/L (3.5-5.1); TOTAL PROTEIN, SERUM 6.3 g/dL (6.0-8.3)
[2018-03-20] MEDS ORDERED: ACETAMINOPHEN 325 MG TAB PO PRN ×2 (21:30)
[2018-03-20] MEDS ORDERED: ONDANSETRON HCL 4 MG/2 ML VIAL IVP PRN (21:30)
[2018-03-20] MEDS ORDERED: MORPHINE SULFATE 4 MG/1ML SYG ONE (22:55)
[2018-03-20] MEDS ORDERED: DEXTROSE 50%-WATER 50 ML DISP.SYRIN IV PRN (23:30)
[2018-03-20] MEDS ORDERED: POTASSIUM CHLORIDE 10% ELIXIR 20 MEQ/15 ML UDCUP PO PRN ×2 (23:30)
[2018-03-20] MEDS ORDERED: POTASSIUM CHLORIDE 20 MEQ ERTAB PO PRN ×2 (23:30)
[2018-03-20] MEDS ORDERED: VANCOMYCIN 1GM+NS 250ML 250 ML IV SCH (23:30)
[2018-03-20] MEDS ORDERED: LIDOCAINE HCL-MPF 1% 2ML VIAL IVP PRN ×2 (23:30)
[2018-03-20] MEDS ORDERED: FAMOTIDINE 20MG TAB 20 MG TAB PO SCH (23:30)
[2018-03-20] MEDS ORDERED: GLUCAGON 1MG KIT 1 MG ML IM PRN (23:30)
[2018-03-20] MEDS ORDERED: POTASSIUM CHLORIDE 20MEQ/100ML 100 ML IV PRN ×2 (23:30)
[2018-03-20 23:50] VITALS: BP 105/67
[2018-03-21] MEDS ORDERED: VANCOMYCIN PROTOCOL PER PHARMACY IV SCH (00:15)
[2018-03-21] MEDS: FUROSEMIDE 10 MG/ML 4ML VIAL IV SCH ×3 (00:39→19:45)
[2018-03-21] MEDS: HEPARIN SODIUM 5000UNIT/ML 1ML VIAL SQ SCH ×4 (00:49→19:57)
[2018-03-21] MEDS: MORPHINE SULFATE 4 MG/1ML SYG IVP PRN ×5 (01:36→19:45)
[2018-03-21 04:00] VITALS: BP 117/58
[2018-03-21] MEDS: INSULIN HUMULIN R 100 UNIT/ML 3ML SQ SCH ×4 (06:00→21:00)
[2018-03-21 08:00] VITALS: BP 109/53
[2018-03-21] MEDS: POLYETHYLENE GLYCOL 3350 17 GM POWD.PACK PO SCH (08:44)
[2018-03-21] MEDS ORDERED: COMPOUND IV MISC 1 EACH IVSOLN MISC PRN (09:15)
[2018-03-21] MEDS: EPOETIN ALFA 20,000 UNIT/ML VIAL SQ SCH (10:34)
[2018-03-21] MEDS: IRON SUCROSE COMPLEX 100 MG in SODIUM CHLORIDE 0.9% 50 ML IV SCH (10:49)
[2018-03-21 11:00] VITALS: BP 106/55
[2018-03-21 16:00] VITALS: BP 103/58
[2018-03-21 20:00] VITALS: BP 125/61
[2018-03-22] VITALS: BP 130/64
[2018-03-22] MEDS: MORPHINE SULFATE 4 MG/1ML SYG IVP PRN ×3 (00:17→10:34)
[2018-03-22 04:00] VITALS: BP 122/70
[2018-03-22 04:57] LABS: BASOPHILS % (AUTO) 0.2 % (0.0-5.0); EOSINOPHILS % (AUTO) 0.7 % (0.0-8.0); HEMATOCRIT 25.5 % (36-48); LYMPHOCYTES % (AUTO) 3.2 % (21.0-51.0); MEAN CORPUSCULAR HEMOGLOBIN 28.3 pg (27.0-33.0); MEAN CORPUSCULAR HGB CONC 32.1 g/dL (32.0-36.0); MEAN CORPUSCULAR VOLUME 88.3 fL (79-99); MONOCYTES % (AUTO) 6.5 % (3.0-13.0); NEUTROPHILS % (AUTO) 89.4 % (40.0-77.0); PLATELET COUNT (AUTO) 328 K/uL (130-400); RED BLOOD CELL COUNT(AUTO) 2.89 MIL/uL (4.00-5.50); RED CELL DISTRIBUTION WIDTH 17.8 % (11.0-15.5); WHITE BLOOD COUNT (AUTO) 24.8 K/uL (4.8-10.8)
[2018-03-22 05:22] LABS: CREATININE 7.1 mg/dL (0.5-1.5); POTASSIUM 4.2 mmol/L (3.5-5.1)
[2018-03-22] MEDS: INSULIN HUMULIN R 100 UNIT/ML 3ML SQ SCH ×2 (06:07→11:30)
[2018-03-22 08:00] VITALS: BP 133/63
[2018-03-22] MEDS: EPOETIN ALFA 20,000 UNIT/ML VIAL SQ SCH (09:00)
[2018-03-22] MEDS: HEPARIN SODIUM 5000UNIT/ML 1ML VIAL SQ SCH (10:15)
[2018-03-22] MEDS: POLYETHYLENE GLYCOL 3350 17 GM POWD.PACK PO SCH (10:15)
[2018-03-22] MEDS: IRON SUCROSE COMPLEX 100 MG in SODIUM CHLORIDE 0.9% 50 ML IV SCH (10:18)
[2018-03-22] MEDS: FUROSEMIDE 10 MG/ML 4ML VIAL IV SCH (10:33)
[2018-03-22 12:38] VITALS: BP 127/60
[2018-03-22 16:17] VITALS: BP 109/57
[2018-03-25] MEDS ORDERED: AMLO5TAB2 PO (03:23)
[2018-03-27] MEDS ORDERED: VANCOMYCIN 1GM+NS 250ML 250 ML IV SCH (09:00)
== END 2018-03-22 19:58 | disposition home or self-care (01) | DRG 682 ==
LOC: EDH 18:17 → EDHIP 18:18 → OBSVTOIN 18:18 → 3AH 23:47
PROVIDERS: ADMIT Internal Medicine Nephrology; ATTEND Internal Medicine Nephrology
DX: I12.0 Hypertensive chronic kidney disease with stage 5 chronic kidney disease or end stage renal disease (principal); N18.6 End stage renal disease; N17.9 Acute kidney failure, unspecified; J90 Pleural effusion, not elsewhere classified; R18.8 Other ascites; J98.11 Atelectasis; E11.22 Type 2 diabetes mellitus with diabetic chronic kidney disease; D72.829 Elevated white blood cell count, unspecified; I25.10 Atherosclerotic heart disease of native coronary artery without angina pectoris; D63.1 Anemia in chronic kidney disease; K59.00 Constipation, unspecified; K74.60 Unspecified cirrhosis of liver; N32.89 Other specified disorders of bladder; Z82.49 Family history of ischemic heart disease and other diseases of the circulatory system; Z91.15 Patient's noncompliance with renal dialysis; Z83.3 Family history of diabetes mellitus; Z99.2 Dependence on renal dialysis
CPT/HCPCS: 36415; 73501; 74176; 80048; 80053; 82550; 82948; 85025; 87040; 93970; J0885; J1644; J1756; J1940; J2270; J3370

== ENCOUNTER 2018-04-05 22:15 | Inpatient (IN) | payer OTHER ==
[~2018-04-05] VITALS: Ht 157.5 cm; Wt 62.9 kg
[~2018-04-05 22:15] MED LIST changes: +AMLO5TAB2 PO
[2018-04-05 23:57] LABS: BASOPHILS % (AUTO) 0.9 % (0.0-5.0); EOSINOPHILS % (AUTO) 2.9 % (0.0-8.0); HEMATOCRIT 21.7 % (36-48); LYMPHOCYTES % (AUTO) 5.7 % (21.0-51.0); MEAN CORPUSCULAR HEMOGLOBIN 28.3 pg (27.0-33.0); MEAN CORPUSCULAR HGB CONC 32.1 g/dL (32.0-36.0); MEAN CORPUSCULAR VOLUME 88.1 fL (79-99); MONOCYTES % (AUTO) 10.5 % (3.0-13.0); NUCLEATED RED BLOOD CELLS 0.1 % (0.0-0.19); PLATELET COUNT (AUTO) 539 K/uL (130-400); RED BLOOD CELL COUNT(AUTO) 2.47 MIL/uL (4.00-5.50); WHITE BLOOD COUNT (AUTO) 11.6 K/uL (4.8-10.8)
[2018-04-05 23:58] LABS: INR 1.04 (0.85-1.15); PARTIAL THROMBOPLASTIN TIME 29.2 SEC (26.3-35.5); PROTHROMBIN TIME 10.9 SEC (9.6-11.6)
[2018-04-06] VITALS (11 sets, daily range): BP systolic 97–140; BP diastolic 52–71
[2018-04-06 00:01] LABS: B-TYPE NATRIURETIC PEPTIDE 1550 pg/mL (0-100)
[2018-04-06 00:21] LABS: ALBUMIN 1.8 g/dL (3.5-5.0); BILIRUBIN,TOTAL 1.5 mg/dL (0.2-1.0); CREATINE KINASE MB 8.4 ng/mL (0.5-3.6); CREATININE 6.5 mg/dL (0.5-1.5); POTASSIUM 5.7 mmol/L (3.5-5.1); TOTAL PROTEIN, SERUM 6.9 g/dL (6.0-8.3)
[2018-04-06 00:39] LABS: PLATELET MORPHOLOGY PLT CLUMPS PRESENT
[2018-04-06] MEDS ORDERED: MORPHINE SULFATE 4 MG/1ML SYG ONE ×2 (01:29→05:37)
[2018-04-06] MEDS ORDERED: ONDANSETRON HCL MDV 20ML 2 MG/ML VIAL ONE (01:29)
[2018-04-06] MEDS ORDERED: SODIUM POLYSTYRENE SULFONATE 15 GM/60 ML ML ONE (03:13)
[2018-04-06] MEDS ORDERED: CALCIUM GLUCONATE 1 GM/10 ML VIAL IV ONE (03:13)
[2018-04-06] MEDS ORDERED: DEXTROSE 50%-WATER 50 ML DISP.SYRIN IV ONE (03:13)
[2018-04-06] MEDS ORDERED: INSULIN HUMULIN R 100 UNIT/ML 3ML ONE (03:14)
[2018-04-06] MEDS ORDERED: SODIUM BICARB 50MEQ 50ML VIAL ONE (03:15)
[2018-04-06] MEDS ORDERED: FUROSEMIDE 10 MG/ML 4ML VIAL IVP SCH (03:45)
[2018-04-06] MEDS ORDERED: ONDANSETRON HCL MDV 20ML 2 MG/ML VIAL IVP PRN (03:45)
[2018-04-06] MEDS ORDERED: FUROSEMIDE 10 MG/ML 2ML VIAL ONE (03:46)
[2018-04-06] MEDS ORDERED: LIDOCAINE HCL-MPF 1% 2ML VIAL IVP PRN (04:00)
[2018-04-06] MEDS ORDERED: POTASSIUM CHLORIDE 20MEQ/100ML 100 ML IV PRN (04:00)
[2018-04-06] MEDS ORDERED: GLUCAGON 1MG KIT 1 MG ML IM PRN (04:00)
[2018-04-06] MEDS ORDERED: DEXTROSE 50%-WATER 50 ML DISP.SYRIN IV PRN (04:00)
[2018-04-06] MEDS ORDERED: POTASSIUM CHLORIDE 10% ELIXIR 20 MEQ/15 ML UDCUP PO PRN (04:00)
[2018-04-06] MEDS ORDERED: POTASSIUM CHLORIDE 20 MEQ ERTAB PO PRN (04:00)
[2018-04-06] MEDS ORDERED: ALBUTEROL SULFATE 0.083% 2.5 MG/3 ML INH IH ONE (04:06)
[2018-04-06] MEDS ORDERED: HYDRALAZINE HCL 20 MG/ML VIAL IV PRN (04:15)
[2018-04-06] MEDS ORDERED: SODIUM CHLORIDE 0.9% 250 ML IV ONE ×2 (04:35→08:17)
[2018-04-06] MEDS ORDERED: METO-409 PO (05:22)
[2018-04-06] MEDS: INSULIN HUMULIN R 100 UNIT/ML 3ML SQ SCH ×4 (07:30→21:00)
[2018-04-06] MEDS: FAMOTIDINE 20MG TAB 20 MG TAB PO SCH (08:45)
[2018-04-06] MEDS ORDERED: SODIUM POLYSTYRENE SULFONATE 15 GM/60 ML ML PO SCH (17:15)
[2018-04-06] MEDS: SODIUM BICARBONATE 650 MG TAB PO SCH (20:25)
[2018-04-07 03:30] VITALS: BP 144/68
[2018-04-07] MEDS ORDERED: MORPHINE SULFATE 4 MG/1ML SYG ONE ×3 (03:53→18:43)
[2018-04-07 06:00] LABS: HEMATOCRIT 25.5 % (36-48); MEAN CORPUSCULAR HEMOGLOBIN 28.8 pg (27.0-33.0); MEAN CORPUSCULAR HGB CONC 33.6 g/dL (32.0-36.0); MEAN CORPUSCULAR VOLUME 85.8 fL (79-99); PLATELET COUNT (AUTO) 453 K/uL (130-400); RED BLOOD CELL COUNT(AUTO) 2.98 MIL/uL (4.00-5.50); RED CELL DISTRIBUTION WIDTH 17.9 % (11.0-15.5); WHITE BLOOD COUNT (AUTO) 9.2 K/uL (4.8-10.8)
[2018-04-07] MEDS: INSULIN HUMULIN R 100 UNIT/ML 3ML SQ SCH ×4 (06:20→21:00)
[2018-04-07 06:23] LABS: ALBUMIN 1.4 g/dL (3.5-5.0); BILIRUBIN,TOTAL 1.2 mg/dL (0.2-1.0); CREATININE 6.4 mg/dL (0.5-1.5); PHOSPHORUS 8.7 mg/dL (2.5-4.9); POTASSIUM 5.4 mmol/L (3.5-5.1); TOTAL PROTEIN, SERUM 5.9 g/dL (6.0-8.3)
[2018-04-07 08:00] VITALS: BP 151/68
[2018-04-07] MEDS: FAMOTIDINE 20MG TAB 20 MG TAB PO SCH (08:36)
[2018-04-07] MEDS: SODIUM BICARBONATE 650 MG TAB PO SCH ×2 (08:36→21:44)
[2018-04-07] MEDS: MORPHINE SULFATE 2 MG/ML 1ML SYG IVP PRN (09:59)
[2018-04-07 11:23] VITALS: BP 129/68
[2018-04-07] MEDS: SODIUM POLYSTYRENE SULFONATE 15 GM/60 ML ML PO SCH (14:33)
[2018-04-07 16:03] VITALS: BP 152/91
[2018-04-07 19:50] VITALS: BP 145/78
[2018-04-07 23:55] VITALS: BP 139/68
[2018-04-08] MEDS ORDERED: MORPHINE SULFATE 4 MG/1ML SYG ONE ×4 (00:06→20:46)
[2018-04-08] MEDS: MORPHINE SULFATE 2 MG/ML 1ML SYG IVP PRN ×2 (00:09→10:42)
[2018-04-08 03:45] VITALS: BP 147/83
[2018-04-08 05:59] LABS: EOSINOPHILS % (AUTO) 5.5 % (0.0-8.0); HEMATOCRIT 27.4 % (36-48); LYMPHOCYTES % (AUTO) 8.3 % (21.0-51.0); MEAN CORPUSCULAR HEMOGLOBIN 29.5 pg (27.0-33.0); MEAN CORPUSCULAR VOLUME 86.8 fL (79-99); MONOCYTES % (AUTO) 11.9 % (3.0-13.0); NEUTROPHILS % (AUTO) 72.3 % (40.0-77.0); PLATELET COUNT (AUTO) 488 K/uL (130-400); RED BLOOD CELL COUNT(AUTO) 3.15 MIL/uL (4.00-5.50); RED CELL DISTRIBUTION WIDTH 17.6 % (11.0-15.5)
[2018-04-08 06:10] LABS: CREATININE 6.1 mg/dL (0.5-1.5); POTASSIUM 4.9 mmol/L (3.5-5.1)
[2018-04-08] MEDS: INSULIN HUMULIN R 100 UNIT/ML 3ML SQ SCH ×4 (06:38→20:55)
[2018-04-08 07:42] VITALS: BP 152/76
[2018-04-08] MEDS ORDERED: SODIUM POLYSTYRENE SULFONATE 15 GM/60 ML ML RC SCH (08:45)
[2018-04-08] MEDS: SODIUM BICARBONATE 650 MG TAB PO SCH ×2 (09:12→20:50)
[2018-04-08 11:22] VITALS: BP 157/85
[2018-04-08] MEDS: SODIUM POLYSTYRENE SULFONATE 15 GM/60 ML ML PO SCH (12:08)
[2018-04-08 16:35] VITALS: BP 153/96
[2018-04-08 20:24] VITALS: BP 180/80
[2018-04-08 23:42] VITALS: BP 154/74
[2018-04-09] MEDS ORDERED: MORPHINE SULFATE 4 MG/1ML SYG ONE ×3 (00:41→09:21)
[2018-04-09 03:57] VITALS: BP 165/83
[2018-04-09] MEDS: INSULIN HUMULIN R 100 UNIT/ML 3ML SQ SCH ×2 (05:45→11:30)
[2018-04-09 07:37] VITALS: BP 165/80
[2018-04-09] MEDS: SODIUM BICARBONATE 650 MG TAB PO SCH (08:27)
[2018-04-09] MEDS ORDERED: ACETAMINOPHEN-CODEINE 300/30MG TAB PO ONE (10:30)
[2018-04-09 11:29] VITALS: BP 153/73
== END 2018-04-09 18:28 | disposition home or self-care (01) | DRG 432 ==
LOC: EDH 22:15 → EDHIP 22:16 → 4CH 04-06 04:15
PROVIDERS: ADMIT Internal Medicine Nephrology; ATTEND Internal Medicine Nephrology
PROC: 30233N1 Transfusion of Nonautologous Red Blood Cells into Peripheral Vein, Percutaneous Approach (ICD-10-PCS; principal; 2018-04-06)
PROC: 0W9G3ZZ Drainage of Peritoneal Cavity, Percutaneous Approach (ICD-10-PCS; 2018-04-06)
DX: K74.60 Unspecified cirrhosis of liver (principal); N18.6 End stage renal disease; J90 Pleural effusion, not elsewhere classified; R18.8 Other ascites; E11.22 Type 2 diabetes mellitus with diabetic chronic kidney disease; N17.9 Acute kidney failure, unspecified; I12.0 Hypertensive chronic kidney disease with stage 5 chronic kidney disease or end stage renal disease; E87.2 Acidosis; E87.5 Hyperkalemia; D64.9 Anemia, unspecified; E87.6 Hypokalemia; D72.829 Elevated white blood cell count, unspecified; E87.70 Fluid overload, unspecified; I25.10 Atherosclerotic heart disease of native coronary artery without angina pectoris; Z79.84 Long term (current) use of oral hypoglycemic drugs; Z99.2 Dependence on renal dialysis; Z91.15 Patient's noncompliance with renal dialysis; Z83.3 Family history of diabetes mellitus
CPT/HCPCS: 36415; 36430; 49083; 71045; 74176; 80048; 80053; 82550; 82553; 82948; 83605; 83690; 83874; 83880; 84100; 84132; 84484; 85025; 85027; 85610; 85730; 86850; 86900; 86901; 86922; 93005; 94640; J0610; J1815; J1940; J2270; J3490; J7030; J7070; P9016

== ENCOUNTER 2018-04-14 23:25 | Observation (INO) | payer OTHER ==
[~2018-04-14] VITALS: Ht 152.4 cm; Wt 66.9 kg
[~2018-04-14 23:25] MED LIST changes: -AMOX-426 PO; -ATOR10 PO; +METO-409 PO; -METO100T14 PO
[2018-04-15 00:06] LABS: BASOPHILS % (AUTO) 2.9 % (0.0-5.0); EOSINOPHILS % (AUTO) 3.4 % (0.0-8.0); HEMATOCRIT 27.2 % (36-48); LYMPHOCYTES % (AUTO) 6.9 % (21.0-51.0); MEAN CORPUSCULAR HEMOGLOBIN 28.5 pg (27.0-33.0); MEAN CORPUSCULAR HGB CONC 33.4 g/dL (32.0-36.0); MEAN CORPUSCULAR VOLUME 85.3 fL (79-99); MONOCYTES % (AUTO) 8.6 % (3.0-13.0); NEUTROPHILS % (AUTO) 78.2 % (40.0-77.0); PLATELET COUNT (AUTO) 432 K/uL (130-400); RED BLOOD CELL COUNT(AUTO) 3.19 MIL/uL (4.00-5.50); RED CELL DISTRIBUTION WIDTH 17.1 % (11.0-15.5); WHITE BLOOD COUNT (AUTO) 10.4 K/uL (4.8-10.8)
[2018-04-15 00:18] LABS: INR 1.05 (0.85-1.15); PARTIAL THROMBOPLASTIN TIME 30.3 SEC (26.3-35.5)
[2018-04-15 00:23] LABS: B-TYPE NATRIURETIC PEPTIDE 1190 pg/mL (0-100)
[2018-04-15 00:31] LABS: ALBUMIN 1.6 g/dL (3.5-5.0); BILIRUBIN,TOTAL 1.2 mg/dL (0.2-1.0); CREATINE KINASE MB 9.5 ng/mL (0.5-3.6); CREATININE 5.9 mg/dL (0.5-1.5); POTASSIUM 5.1 mmol/L (3.5-5.1); TOTAL PROTEIN, SERUM 6.6 g/dL (6.0-8.3)
[2018-04-15] MEDS ORDERED: ASPIRIN 81MG TAB.CHEW ONE (00:33)
[2018-04-15] MEDS ORDERED: AMOX1TAB15 PO (02:33)
[2018-04-15] MEDS ORDERED: POTASSIUM CHLORIDE 10% ELIXIR 20 MEQ/15 ML UDCUP PO PRN ×2 (03:30)
[2018-04-15] MEDS ORDERED: LIDOCAINE HCL-MPF 1% 2ML VIAL IVP PRN ×2 (03:30)
[2018-04-15] MEDS ORDERED: GLUCAGON 1MG KIT 1 MG ML IM PRN (03:30)
[2018-04-15] MEDS ORDERED: DEXTROSE 50%-WATER 50 ML DISP.SYRIN IV PRN (03:30)
[2018-04-15] MEDS ORDERED: POTASSIUM CHLORIDE 20MEQ/100ML 100 ML IV PRN ×2 (03:30)
[2018-04-15] MEDS ORDERED: POTASSIUM CHLORIDE 20 MEQ ERTAB PO PRN ×2 (03:30)
[2018-04-15 04:55] VITALS: BP 119/61
[2018-04-15] MEDS: FUROSEMIDE 10 MG/ML 4ML VIAL IV SCH ×2 (05:45→17:58)
[2018-04-15] MEDS: INSULIN HUMULIN R 100 UNIT/ML 3ML SQ SCH ×4 (06:37→21:00)
[2018-04-15 07:00] VITALS: BP 123/61
[2018-04-15 07:18] LABS: HEMATOCRIT 28.8 % (36-48); MEAN CORPUSCULAR HEMOGLOBIN 28.1 pg (27.0-33.0); MEAN CORPUSCULAR VOLUME 85.2 fL (79-99); PLATELET COUNT (AUTO) 428 K/uL (130-400); RED BLOOD CELL COUNT(AUTO) 3.39 MIL/uL (4.00-5.50); RED CELL DISTRIBUTION WIDTH 16.9 % (11.0-15.5)
[2018-04-15 07:31] LABS: CREATININE 5.7 mg/dL (0.5-1.5); POTASSIUM 4.9 mmol/L (3.5-5.1)
[2018-04-15] MEDS: FAMOTIDINE 20MG TAB 20 MG TAB PO SCH ×2 (08:49→20:29)
[2018-04-15] MEDS: AMLODIPINE BESYLATE 5 MG TAB PO SCH ×2 (08:49→20:27)
[2018-04-15] MEDS: Metoprolol Succinate 100 MG PO SCH (08:50)
[2018-04-15] MEDS ORDERED: FUROSEMIDE 40 MG TABLET PO SCH (09:00)
[2018-04-15 11:00] VITALS: BP 112/55
[2018-04-15] MEDS: MORPHINE SULFATE 4 MG/1ML SYG IVP PRN ×2 (13:27→21:39)
[2018-04-15 15:00] VITALS: BP 101/57
[2018-04-15 20:00] VITALS: BP 109/49
[2018-04-15 23:56] VITALS: BP 110/55
[2018-04-16 03:35] VITALS: BP 129/66
[2018-04-16 04:47] LABS: HEMATOCRIT 25.5 % (36-48); MEAN CORPUSCULAR HEMOGLOBIN 29.4 pg (27.0-33.0); MEAN CORPUSCULAR HGB CONC 34.2 g/dL (32.0-36.0); MEAN CORPUSCULAR VOLUME 85.8 fL (79-99); PLATELET COUNT (AUTO) 388 K/uL (130-400); RED BLOOD CELL COUNT(AUTO) 2.97 MIL/uL (4.00-5.50); RED CELL DISTRIBUTION WIDTH 16.9 % (11.0-15.5); WHITE BLOOD COUNT (AUTO) 6.8 K/uL (4.8-10.8)
[2018-04-16 05:00] LABS: CREATININE 5.9 mg/dL (0.5-1.5)
[2018-04-16 05:18] LABS: BASOPHILS % (MANUAL) 1 % (0-2); EOSINOPHILS % (MANUAL) 12 % (1-6); LYMPHOCYTES % (MANUAL) 18 % (22-44); MAN.DIFF COMMENT-IMPRESSION MANUAL DIFFERENTIAL; MONOCYTES % (MANUAL) 3 % (2-9); SEGMENTED NEUTROPHILS % 66 % (40-70)
[2018-04-16 05:19] LABS: PLATELET MORPHOLOGY COMMENT ADEQUATE
[2018-04-16] MEDS: FUROSEMIDE 10 MG/ML 4ML VIAL IV SCH (05:48)
[2018-04-16] MEDS: INSULIN HUMULIN R 100 UNIT/ML 3ML SQ SCH ×3 (05:48→16:30)
[2018-04-16 07:00] VITALS: BP 118/63
[2018-04-16] MEDS: Metoprolol Succinate 100 MG PO SCH (09:00)
[2018-04-16] MEDS: AMLODIPINE BESYLATE 5 MG TAB PO SCH (09:23)
[2018-04-16] MEDS: FAMOTIDINE 20MG TAB 20 MG TAB PO SCH (09:24)
[2018-04-16 11:25] VITALS: BP 123/58
[2018-04-16] MEDS ORDERED: TRAMADOL HCL 50 MG TABLET PO PRN (11:45)
[2018-04-16 15:30] VITALS: BP 111/52
== END 2018-04-16 18:47 | disposition home or self-care (01) ==
LOC: EDH 23:25 → EDHIP 23:26 → 3CH 04-15 01:44
PROVIDERS: ADMIT Internal Medicine Nephrology; ATTEND Internal Medicine Nephrology
DX: R18.8 Other ascites (principal); N17.9 Acute kidney failure, unspecified; I12.9 Hypertensive chronic kidney disease with stage 1 through stage 4 chronic kidney disease, or unspecified chronic kidney disease; N18.9 Chronic kidney disease, unspecified; E87.5 Hyperkalemia; E88.09 Other disorders of plasma-protein metabolism, not elsewhere classified; Z79.899 Other long term (current) drug therapy; Z79.82 Long term (current) use of aspirin; E11.22 Type 2 diabetes mellitus with diabetic chronic kidney disease; I25.10 Atherosclerotic heart disease of native coronary artery without angina pectoris; K74.60 Unspecified cirrhosis of liver
CPT/HCPCS: 36415 ×3; 49083; 71045; 76700; 80048 ×2; 80053; 82550; 82553; 82948 ×6; 83874; 83880; 84484; 85025 ×2; 85027; 85610; 85730; 93005; 96374; 96375; 96376 ×2; G0378 ×43; J1940 ×3; J2270 ×2

== ENCOUNTER 2018-04-27 03:03 | Inpatient (IN) | payer OTHER ==
[~2018-04-27] VITALS: Ht 157.5 cm; Wt 65.3 kg
[2018-04-27 03:53] LABS: EOSINOPHILS % (AUTO) 6.2 % (0.0-8.0); HEMATOCRIT 28.3 % (36-48); LYMPHOCYTES % (AUTO) 6.5 % (21.0-51.0); MEAN CORPUSCULAR HEMOGLOBIN 27.6 pg (27.0-33.0); MEAN CORPUSCULAR HGB CONC 31.6 g/dL (32.0-36.0); MEAN CORPUSCULAR VOLUME 87.5 fL (79-99); MONOCYTES % (AUTO) 7.9 % (3.0-13.0); NEUTROPHILS % (AUTO) 78.4 % (40.0-77.0); PLATELET COUNT (AUTO) 328 K/uL (130-400); RED BLOOD CELL COUNT(AUTO) 3.23 MIL/uL (4.00-5.50); RED CELL DISTRIBUTION WIDTH 17.3 % (11.0-15.5); WHITE BLOOD COUNT (AUTO) 12.2 K/uL (4.8-10.8)
[2018-04-27 04:04] LABS: PARTIAL THROMBOPLASTIN TIME 28.5 SEC (26.3-35.5); PROTHROMBIN TIME 10.5 SEC (9.6-11.6)
[2018-04-27 04:07] LABS: ALBUMIN 1.7 g/dL (3.5-5.0); BILIRUBIN,TOTAL 0.9 mg/dL (0.2-1.0); CREATININE 4.8 mg/dL (0.5-1.5); POTASSIUM 5.3 mmol/L (3.5-5.1); TOTAL PROTEIN, SERUM 6.7 g/dL (6.0-8.3)
[2018-04-27 04:37] LABS: B-TYPE NATRIURETIC PEPTIDE 1820 pg/mL (0-100)
[2018-04-27] MEDS ORDERED: ONDANSETRON HCL 4 MG/2 ML VIAL ONE (05:41)
[2018-04-27] MEDS ORDERED: MORPHINE SULFATE 4 MG/1ML SYG ONE (05:41)
[2018-04-27] MEDS ORDERED: ONDANSETRON HCL 4 MG/2 ML VIAL IVP PRN (08:15)
[2018-04-27 08:40] VITALS: BP 149/73
[2018-04-27 11:00] VITALS: BP 146/75
[2018-04-27] MEDS ORDERED: SODIUM POLYSTYRENE SULFONATE 15 GM/60 ML ML PO SCH (12:00)
[2018-04-27 16:00] VITALS: BP 138/70
[2018-04-27 19:57] VITALS: BP 153/79
[2018-04-27] MEDS: METOPROLOL TARTRATE 50 MG TAB PO SCH (20:35)
[2018-04-27] MEDS: AMLODIPINE BESYLATE 5 MG TAB PO SCH (20:36)
[2018-04-27] MEDS: FUROSEMIDE 40 MG TABLET PO SCH (20:36)
[2018-04-27 23:57] VITALS: BP 149/76
[2018-04-28] MEDS: ACETAMINOPHEN 325 MG TAB PO PRN (00:40)
[2018-04-28 04:00] VITALS: BP 136/62
[2018-04-28 04:43] LABS: HEMATOCRIT 23.9 % (36-48); MEAN CORPUSCULAR HEMOGLOBIN 28.5 pg (27.0-33.0); MEAN CORPUSCULAR HGB CONC 32.8 g/dL (32.0-36.0); MEAN CORPUSCULAR VOLUME 86.8 fL (79-99); PLATELET COUNT (AUTO) 288 K/uL (130-400); RED BLOOD CELL COUNT(AUTO) 2.75 MIL/uL (4.00-5.50); RED CELL DISTRIBUTION WIDTH 16.7 % (11.0-15.5); WHITE BLOOD COUNT (AUTO) 6.2 K/uL (4.8-10.8)
[2018-04-28 04:59] LABS: MAGNESIUM 1.9 mg/dL (1.80-2.40); PHOSPHORUS 6.1 mg/dL (2.5-4.9)
[2018-04-28 05:01] LABS: B-TYPE NATRIURETIC PEPTIDE 1390 pg/mL (0-100)
[2018-04-28] MEDS: AMLODIPINE BESYLATE 5 MG TAB PO SCH ×2 (07:25→20:45)
[2018-04-28] MEDS: METOPROLOL TARTRATE 50 MG TAB PO SCH ×2 (07:25→20:45)
[2018-04-28] MEDS: FUROSEMIDE 40 MG TABLET PO SCH ×2 (07:25→20:45)
[2018-04-28 07:33] VITALS: BP 117/50
[2018-04-28 07:48] LABS: CREATININE 4.8 mg/dL (0.5-1.5); POTASSIUM 5.3 mmol/L (3.5-5.1)
[2018-04-28] MEDS ORDERED: MORPHINE SULFATE 2 MG/ML 1ML SYG IVP PRN (09:15)
[2018-04-28 11:15] VITALS: BP 137/62
[2018-04-28 16:33] VITALS: BP 128/65
[2018-04-28] MEDS: MORPHINE SULFATE 4 MG/1ML SYG IVP PRN (16:58)
[2018-04-28] MEDS ORDERED: SODIUM POLYSTYRENE SULFONATE 15 GM/60 ML ML ONE (19:57)
[2018-04-28 20:05] VITALS: BP 122/61
[2018-04-28] MEDS ORDERED: SODIUM POLYSTYRENE SULFONATE 15 GM/60 ML ML PO SCH (21:00)
[2018-04-29] VITALS (8 sets, daily range): BP systolic 124–144; BP diastolic 60–71
[2018-04-29] MEDS: MORPHINE SULFATE 4 MG/1ML SYG IVP PRN ×2 (03:33→11:26)
[2018-04-29 04:06] LABS: EOSINOPHILS % (AUTO) 2.7 % (0.0-8.0); HEMATOCRIT 25.8 % (36-48); LYMPHOCYTES % (AUTO) 11.7 % (21.0-51.0); MEAN CORPUSCULAR HEMOGLOBIN 27.6 pg (27.0-33.0); MEAN CORPUSCULAR HGB CONC 31.6 g/dL (32.0-36.0); MEAN CORPUSCULAR VOLUME 87.4 fL (79-99); MONOCYTES % (AUTO) 11.5 % (3.0-13.0); NEUTROPHILS % (AUTO) 72.1 % (40.0-77.0); PLATELET COUNT (AUTO) 290 K/uL (130-400); RED BLOOD CELL COUNT(AUTO) 2.95 MIL/uL (4.00-5.50); RED CELL DISTRIBUTION WIDTH 17.1 % (11.0-15.5); WHITE BLOOD COUNT (AUTO) 5.3 K/uL (4.8-10.8)
[2018-04-29 04:23] LABS: INR 1.01 (0.85-1.15); PARTIAL THROMBOPLASTIN TIME 30.3 SEC (26.3-35.5); PROTHROMBIN TIME 10.6 SEC (9.6-11.6)
[2018-04-29 04:44] LABS: CREATININE 4.8 mg/dL (0.5-1.5); MAGNESIUM 1.9 mg/dL (1.80-2.40); PHOSPHORUS 6.4 mg/dL (2.5-4.9); POTASSIUM 4.9 mmol/L (3.5-5.1)
[2018-04-29 04:58] LABS: % IRON SATURATION 24.6 % (22-44)
[2018-04-29] MEDS: CALCIUM ACETATE 667 MG CAPSULE PO SCH ×3 (08:00→16:57)
[2018-04-29] MEDS ORDERED: LIDOCAINE HCL 1% 10 ML VIAL ONE (09:56)
[2018-04-29] MEDS: AMLODIPINE BESYLATE 5 MG TAB PO SCH ×2 (11:07→21:27)
[2018-04-29] MEDS: METOPROLOL TARTRATE 50 MG TAB PO SCH (11:07)
[2018-04-29] MEDS: FUROSEMIDE 40 MG TABLET PO SCH ×2 (11:07→20:00)
[2018-04-29] MEDS ORDERED: COMPOUND IV MISC 1 EACH IVSOLN MISC PRN (11:45)
[2018-04-29] MEDS ORDERED: COMPOUND IV REFRIGERATED 1 EACH IVSOLN MISC PRN (11:45)
[2018-04-29] MEDS: PROPRANOLOL HCL 10 MG TAB PO SCH (17:00)
[2018-04-29] MEDS: SODIUM BICARBONATE 650 MG TAB PO SCH (20:00)
[2018-04-29] MEDS ORDERED: MORPHINE SULFATE 4 MG/1ML SYG IVP PRN (20:54)
[2018-04-29] MEDS ORDERED: EPOETIN ALFA 20,000 UNIT/ML VIAL SQ ONE (21:00)
[2018-04-29] MEDS: ACETAMINOPHEN 325 MG TAB PO PRN (21:27)
[2018-04-30] MEDS: PROPRANOLOL HCL 10 MG TAB PO SCH ×3 (03:12→16:55)
[2018-04-30 03:38] VITALS: BP 135/64
[2018-04-30 04:02] LABS: HEMATOCRIT 23.8 % (36-48); MEAN CORPUSCULAR HEMOGLOBIN 28.8 pg (27.0-33.0); MEAN CORPUSCULAR HGB CONC 33.1 g/dL (32.0-36.0); MEAN CORPUSCULAR VOLUME 87.1 fL (79-99); NUCLEATED RED BLOOD CELLS 0.1 % (0.0-0.19); PLATELET COUNT (AUTO) 284 K/uL (130-400); RED BLOOD CELL COUNT(AUTO) 2.73 MIL/uL (4.00-5.50); RED CELL DISTRIBUTION WIDTH 17.3 % (11.0-15.5); WHITE BLOOD COUNT (AUTO) 4.9 K/uL (4.8-10.8)
[2018-04-30 04:27] LABS: CREATININE 4.9 mg/dL (0.5-1.5); POTASSIUM 4.5 mmol/L (3.5-5.1); THYROID STIMULATING HORMONE 34.6 uIU/mL (0.36-3.74)
[2018-04-30] MEDS: ACETAMINOPHEN 325 MG TAB PO PRN ×2 (04:33→04:39)
[2018-04-30 07:00] VITALS: BP 126/60
[2018-04-30] MEDS ORDERED: IRON SUCROSE COMPLEX 100 MG in SODIUM CHLORIDE 0.9% 50 ML IV SCH (09:00)
[2018-04-30] MEDS: SODIUM BICARBONATE 650 MG TAB PO SCH (09:13)
[2018-04-30] MEDS: CALCIUM ACETATE 667 MG CAPSULE PO SCH ×3 (09:13→16:55)
[2018-04-30] MEDS: FUROSEMIDE 40 MG TABLET PO SCH (09:14)
[2018-04-30] MEDS: AMLODIPINE BESYLATE 5 MG TAB PO SCH (09:14)
[2018-04-30 11:00] VITALS: BP 127/59
[2018-04-30 16:00] VITALS: BP 148/68
== END 2018-04-30 18:35 | disposition home or self-care (01) | DRG 682 ==
LOC: EDH 03:03 → EDHIP 03:04 → 2AH 08:45
PROVIDERS: ADMIT Internal Medicine Nephrology; ATTEND Internal Medicine Nephrology
PROC: 0W9G3ZZ Drainage of Peritoneal Cavity, Percutaneous Approach (ICD-10-PCS; principal; 2018-04-30)
DX: I12.0 Hypertensive chronic kidney disease with stage 5 chronic kidney disease or end stage renal disease (principal); N18.6 End stage renal disease; N17.9 Acute kidney failure, unspecified; E87.2 Acidosis; R18.8 Other ascites; J90 Pleural effusion, not elsewhere classified; K74.60 Unspecified cirrhosis of liver; D63.8 Anemia in other chronic diseases classified elsewhere; E11.22 Type 2 diabetes mellitus with diabetic chronic kidney disease; E87.5 Hyperkalemia; E87.70 Fluid overload, unspecified; I25.10 Atherosclerotic heart disease of native coronary artery without angina pectoris; Z83.3 Family history of diabetes mellitus
CPT/HCPCS: 36415; 49083; 71045; 76705; 80048; 80053; 82728; 82948; 83540; 83550; 83690; 83735; 83880; 84100; 84443; 84484; 85025; 85027; 85610; 85730; 93005; 99291; J0885; J1756; J2270; J2405; J3490

== ENCOUNTER 2018-08-05 18:15 | Inpatient (IN) | payer OTHER ==
[~2018-08-05] VITALS: Ht 162.6 cm; Wt 57.6 kg
[~2018-08-05 18:15] MED LIST changes: +AEC81 PO; -AMLO5TAB2 PO; +AMLO5TAB7 PO; -METO-409 PO; +METO100T14 PO; +NAPR220C16 PO; +SODI650T PO; +TRAM50TA2 PO
[2018-08-05 19:10] LABS: BASOPHILS % (AUTO) 1.3 % (0.0-5.0); EOSINOPHILS % (AUTO) 1.6 % (0.0-8.0); HEMATOCRIT 26.5 % (36-48); LYMPHOCYTES % (AUTO) 8.6 % (21.0-51.0); MEAN CORPUSCULAR HEMOGLOBIN 29.3 pg (27.0-33.0); MEAN CORPUSCULAR HGB CONC 30.9 g/dL (32.0-36.0); MEAN CORPUSCULAR VOLUME 95.1 fL (79-99); NEUTROPHILS % (AUTO) 81.5 % (40.0-77.0); PLATELET COUNT (AUTO) 277 K/uL (130-400); RED BLOOD CELL COUNT(AUTO) 2.79 MIL/uL (4.00-5.50); RED CELL DISTRIBUTION WIDTH 18.2 % (11.0-15.5); WHITE BLOOD COUNT (AUTO) 7.8 K/uL (4.8-10.8)
[2018-08-05] MEDS ORDERED: ONDANSETRON HCL 4 MG/2 ML VIAL ONE (19:31)
[2018-08-05] MEDS ORDERED: MORPHINE SULFATE 4 MG/1ML SYG ONE (19:31)
[2018-08-05 19:41] LABS: ALBUMIN 2.1 g/dL (3.5-5.0); BILIRUBIN,TOTAL 0.4 mg/dL (0.2-1.0); CREATININE 5.4 mg/dL (0.5-1.5); POTASSIUM 4.5 mmol/L (3.5-5.1)
[2018-08-05 19:43] LABS: INR 0.96 (0.85-1.15); PARTIAL THROMBOPLASTIN TIME 28.5 SEC (26.3-35.5); PROTHROMBIN TIME 10.1 SEC (9.6-11.6)
[2018-08-05] MEDS ORDERED: ALBUTEROL SULFATE 0.083% 2.5 MG/3 ML INH IH PRN (21:15)
[2018-08-05] MEDS ORDERED: GLUCAGON 1MG KIT 1 MG ML IM PRN (21:15)
[2018-08-05] MEDS ORDERED: ONDANSETRON HCL 4 MG/2 ML VIAL IVP PRN (21:15)
[2018-08-05] MEDS ORDERED: DEXTROSE 50%-WATER 50 ML DISP.SYRIN IV PRN (21:15)
[2018-08-05] MEDS ORDERED: SODIUM CHLORIDE 0.9% 10 ML VIAL IVP SCH (21:15)
[2018-08-06 00:37] LABS: APPEARANCE,URINE Cloudy (CLEAR); BILIRUBIN,URINE Negative (NEGATIVE); COLOR,URINE Yellow (YELLOW); GLUCOSE, URINE (UA) Negative (NEGATIVE); KETONES,URINE Negative (NEGATIVE); LEUKOCYTE ESTERASE ,URINE Trace (NEGATIVE); NITRATE,URINE Negative (NEGATIVE); OCCULT BLOOD,URINE Negative (NEGATIVE); PROTEIN,URINE POS 2+ (NEGATIVE); UROBILINOGEN,URINE 0.2 mg/dL (0.2-1.0)
[2018-08-06 00:54] LABS: BACTERIA,URINE Many /HPF (None Seen); RBC,URINE None Seen /HPF (0-1); SQUAMOUS EPITHELIAL CELL,UR Rare /HPF (0-2)
[2018-08-06 06:48] LABS: BASOPHILS % (AUTO) 1.2 % (0.0-5.0); EOSINOPHILS % (AUTO) 3.8 % (0.0-8.0); HEMATOCRIT 24.6 % (36-48); LYMPHOCYTES % (AUTO) 12.6 % (21.0-51.0); MEAN CORPUSCULAR HEMOGLOBIN 28.9 pg (27.0-33.0); MEAN CORPUSCULAR HGB CONC 30.3 g/dL (32.0-36.0); MEAN CORPUSCULAR VOLUME 95.6 fL (79-99); MONOCYTES % (AUTO) 9.2 % (3.0-13.0); NEUTROPHILS % (AUTO) 73.2 % (40.0-77.0); NUCLEATED RED BLOOD CELLS 0.1 % (0.0-0.19); PLATELET COUNT (AUTO) 226 K/uL (130-400); RED BLOOD CELL COUNT(AUTO) 2.57 MIL/uL (4.00-5.50); RED CELL DISTRIBUTION WIDTH 18.2 % (11.0-15.5); WHITE BLOOD COUNT (AUTO) 7.4 K/uL (4.8-10.8)
[2018-08-06 07:04] LABS: BILIRUBIN,TOTAL 0.4 mg/dL (0.2-1.0); CREATININE 5.4 mg/dL (0.5-1.5); POTASSIUM 4.5 mmol/L (3.5-5.1); TOTAL PROTEIN, SERUM 6.5 g/dL (6.0-8.3)
[2018-08-06 07:11] LABS: INR 0.99 (0.85-1.15); PARTIAL THROMBOPLASTIN TIME 25.2 SEC (26.3-35.5); PROTHROMBIN TIME 10.4 SEC (9.6-11.6)
[2018-08-06 08:46] VITALS: BP 135/73
[2018-08-06] MEDS: MORPHINE SULFATE 4 MG/1ML SYG IVP PRN ×2 (09:04→20:24)
[2018-08-06] MEDS ORDERED: LIDOCAINE HCL MPF 1% 5ML VIAL ONE (10:38)
[2018-08-06] MEDS: INSULIN R PO SSI SQ SCH ×2 (11:30→20:27)
[2018-08-06] MEDS ORDERED: LEVOFLOXACIN 500 MG/D5W 100 ML 100 ML IV SCH (11:30)
[2018-08-06 11:35] VITALS: BP 143/66
[2018-08-06 16:49] VITALS: BP 102/64
[2018-08-06 19:31] VITALS: BP 147/72
[2018-08-06 23:15] VITALS: BP 143/66
[2018-08-07 03:37] VITALS: BP 133/64
[2018-08-07] MEDS: INSULIN R PO SSI SQ SCH ×3 (05:45→16:30)
[2018-08-07] MEDS: MORPHINE SULFATE 4 MG/1ML SYG IVP PRN (06:19)
[2018-08-07 08:21] VITALS: BP 141/65
[2018-08-07] MEDS ORDERED: METO-409 PO (11:58)
[2018-08-07 12:19] VITALS: BP 165/69
[2018-08-07] MEDS ORDERED: LEVO500T2 PO (12:42)
[2018-08-07 17:00] VITALS: BP 153/78
== END 2018-08-07 19:00 | disposition home or self-care (01) | DRG 187 ==
LOC: EDH 18:15 → EDHIP 18:16 → 4BH 08-06 06:40
PROVIDERS: ADMIT Hospitalist; ATTEND Hospitalist
PROC: 0W9G30Z Drainage of Peritoneal Cavity with Drainage Device, Percutaneous Approach (ICD-10-PCS; principal; 2018-08-06)
DX: J90 Pleural effusion, not elsewhere classified (principal); J98.11 Atelectasis; R18.8 Other ascites; N39.0 Urinary tract infection, site not specified; I12.9 Hypertensive chronic kidney disease with stage 1 through stage 4 chronic kidney disease, or unspecified chronic kidney disease; E11.22 Type 2 diabetes mellitus with diabetic chronic kidney disease; D63.8 Anemia in other chronic diseases classified elsewhere; N32.89 Other specified disorders of bladder; I25.10 Atherosclerotic heart disease of native coronary artery without angina pectoris; N18.3 Chronic kidney disease, stage 3 (moderate); Z83.3 Family history of diabetes mellitus; Z88.8 Allergy status to other drugs, medicaments and biological substances
CPT/HCPCS: 36415; 49083; 74176; 80053; 81001; 82140; 82948; 83690; 85025; 85610; 85730; 94640; 94664; J1956; J2270; J2405; J3490

== ENCOUNTER 2018-08-26 23:12 | Inpatient (IN) | payer MEDICAID, OTHER ==
[~2018-08-26] VITALS: Ht 149.9 cm; Wt 62.8 kg
[~2018-08-26 23:12] MED LIST changes: -AEC81 PO; +LEVO500T2 PO; +METO-409 PO; -METO100T14 PO; -NAPR220C16 PO; -SODI650T PO; -TRAM50TA2 PO
[2018-08-27] VITALS (13 sets, daily range): BP systolic 125–154; BP diastolic 59–79
[2018-08-27 00:01] LABS: BASOPHILS % (AUTO) 1.5 % (0.0-5.0); EOSINOPHILS % (AUTO) 4.3 % (0.0-8.0); HEMATOCRIT 26.3 % (36-48); LYMPHOCYTES % (AUTO) 10.8 % (21.0-51.0); MEAN CORPUSCULAR HEMOGLOBIN 30.2 pg (27.0-33.0); MEAN CORPUSCULAR HGB CONC 32.1 g/dL (32.0-36.0); MEAN CORPUSCULAR VOLUME 94.1 fL (79-99); NEUTROPHILS % (AUTO) 75.4 % (40.0-77.0); PLATELET COUNT (AUTO) 291 K/uL (130-400); WHITE BLOOD COUNT (AUTO) 7.9 K/uL (4.8-10.8)
[2018-08-27] MEDS ORDERED: MORPHINE SULFATE 2 MG/ML 1ML SYG ONE ×2 (00:08→04:49)
[2018-08-27 00:20] LABS: ALBUMIN 2.1 g/dL (3.5-5.0); BILIRUBIN,TOTAL 1.1 mg/dL (0.2-1.0); CREATININE 5.2 mg/dL (0.5-1.5); TOTAL PROTEIN, SERUM 6.8 g/dL (6.0-8.3)
[2018-08-27] MEDS ORDERED: FUROSEMIDE 10 MG/ML 4ML VIAL IV SCH (03:15)
[2018-08-27] MEDS ORDERED: ONDANSETRON HCL MDV 20ML 2 MG/ML VIAL IV PRN (03:15)
[2018-08-27] MEDS ORDERED: MORPHINE SULFATE 4 MG/1ML SYG IV PRN (03:15)
[2018-08-27] MEDS ORDERED: DEXTROSE 50%-WATER 50 ML DISP.SYRIN IV PRN (03:45)
[2018-08-27] MEDS ORDERED: GLUCAGON 1MG KIT 1 MG ML IM PRN (03:45)
[2018-08-27] MEDS ORDERED: FUROSEMIDE 10 MG/ML 4ML VIAL ONE (06:18)
[2018-08-27] MEDS: IPRATROPIUM/ALBUTEROL SULFATE 3 ML SOLUTION IH SCH ×6 (06:26→21:40)
[2018-08-27] MEDS: INSULIN HUMULIN R 100 UNIT/ML 3ML SQ SCH ×4 (07:30→21:00)
[2018-08-27 08:10] LABS: HEMATOCRIT 26.1 % (36-48); MEAN CORPUSCULAR HEMOGLOBIN 29.9 pg (27.0-33.0); MEAN CORPUSCULAR HGB CONC 31.9 g/dL (32.0-36.0); MEAN CORPUSCULAR VOLUME 93.9 fL (79-99); PLATELET COUNT (AUTO) 277 K/uL (130-400); RED BLOOD CELL COUNT(AUTO) 2.78 MIL/uL (4.00-5.50); RED CELL DISTRIBUTION WIDTH 16.9 % (11.0-15.5); WHITE BLOOD COUNT (AUTO) 6.4 K/uL (4.8-10.8)
[2018-08-27 08:16] LABS: HEMOGLOBIN A1C 5.2 % (4.0-6.0)
[2018-08-27 08:22] LABS: ALBUMIN 1.9 g/dL (3.5-5.0); BILIRUBIN,DIRECT 0.1 mg/dL (0.0-0.3); CREATININE 5.4 mg/dL (0.5-1.5); POTASSIUM 5.2 mmol/L (3.5-5.1); TOTAL PROTEIN, SERUM 6.4 g/dL (6.0-8.3)
[2018-08-27] MEDS ORDERED: BUMETANIDE 0.25 MG/ML 10 ML 40 ML IV SCH (09:00)
[2018-08-27] MEDS ORDERED: PHARMACY COMMUNICATION MISC SCH (09:00)
[2018-08-27] MEDS: FAMOTIDINE/PF 20 MG/2 ML VIAL IV SCH ×2 (11:30→21:18)
[2018-08-27 12:38] LABS: APPEARANCE BODY FLUID CLEAR (CLEAR); BODY FLUID WBC 303 /cu. mm.; COLOR,BODY FLUID YELLOW (LT YELLOW); SPECIMENTYPE,BODY FLUID ASCITES; TOTAL VOLUME,BODY FLUID 2600 mL
[2018-08-27 12:39] LABS: BODY FLUID RBC 127 /cu. mm.
[2018-08-27 12:41] LABS: BF LYMPHOCYTE 52 %; BF MESOTHELIAL 22 %; BF MONOCYTE 17 %
[2018-08-27] MEDS ORDERED: EPOETIN ALFA 10,000 UNIT/ML VIAL SQ SCH (13:00)
[2018-08-27] MEDS ORDERED: COMPOUND IV MISC 1 EACH IVSOLN MISC PRN (13:00)
[2018-08-27] MEDS: MORPHINE SULFATE 2 MG/ML 1ML SYG IV PRN ×2 (16:25→21:20)
[2018-08-27] MEDS: FUROSEMIDE 40 MG TABLET PO SCH (17:51)
[2018-08-28] VITALS: BP 140/83
[2018-08-28] MEDS: IPRATROPIUM/ALBUTEROL SULFATE 3 ML SOLUTION IH SCH ×3 (01:34→10:00)
[2018-08-28] MEDS: MORPHINE SULFATE 2 MG/ML 1ML SYG IV PRN ×2 (03:27→16:36)
[2018-08-28 03:57] VITALS: BP 145/71
[2018-08-28] MEDS: INSULIN HUMULIN R 100 UNIT/ML 3ML SQ SCH ×3 (06:15→16:30)
[2018-08-28 08:33] LABS: BASOPHILS % (AUTO) 0.9 % (0.0-5.0); EOSINOPHILS % (AUTO) 1.9 % (0.0-8.0); HEMATOCRIT 27.4 % (36-48); LYMPHOCYTES % (AUTO) 5.8 % (21.0-51.0); MEAN CORPUSCULAR HEMOGLOBIN 29.1 pg (27.0-33.0); MEAN CORPUSCULAR HGB CONC 30.6 g/dL (32.0-36.0); MEAN CORPUSCULAR VOLUME 95.2 fL (79-99); MONOCYTES % (AUTO) 5.6 % (3.0-13.0); NEUTROPHILS % (AUTO) 85.8 % (40.0-77.0); PLATELET COUNT (AUTO) 238 K/uL (130-400); RED BLOOD CELL COUNT(AUTO) 2.87 MIL/uL (4.00-5.50)
[2018-08-28 08:54] LABS: CREATININE 5.5 mg/dL (0.5-1.5); POTASSIUM 4.8 mmol/L (3.5-5.1)
[2018-08-28] MEDS ORDERED: IRON SUCROSE COMPLEX 100 MG in SODIUM CHLORIDE 0.9% 50 ML IV SCH (09:00)
[2018-08-28] MEDS: FAMOTIDINE/PF 20 MG/2 ML VIAL IV SCH (10:59)
[2018-08-28] MEDS: FUROSEMIDE 40 MG TABLET PO SCH ×2 (10:59→16:39)
[2018-08-28] MEDS ORDERED: IPRATROPIUM/ALBUTEROL SULFATE 3 ML SOLUTION IH PRN (14:45)
== END 2018-08-28 18:00 | disposition left against medical advice (07) | DRG 433 ==
LOC: EDH 23:12 → EDHIP 23:13 → 3CH 08-27 10:49
PROVIDERS: ADMIT Internal Medicine; ATTEND Internal Medicine
PROC: 0W9G3ZZ Drainage of Peritoneal Cavity, Percutaneous Approach (ICD-10-PCS; principal; 2018-08-27)
DX: K74.60 Unspecified cirrhosis of liver (principal); J90 Pleural effusion, not elsewhere classified; N18.5 Chronic kidney disease, stage 5; I12.0 Hypertensive chronic kidney disease with stage 5 chronic kidney disease or end stage renal disease; R18.8 Other ascites; X58.XXXA Exposure to other specified factors, initial encounter; S90.931A Unspecified superficial injury of right great toe, initial encounter; E11.22 Type 2 diabetes mellitus with diabetic chronic kidney disease; E11.65 Type 2 diabetes mellitus with hyperglycemia; D63.1 Anemia in chronic kidney disease; R00.1 Bradycardia, unspecified; E88.09 Other disorders of plasma-protein metabolism, not elsewhere classified; Z53.21 Procedure and treatment not carried out due to patient leaving prior to being seen by health care provider; E87.70 Fluid overload, unspecified; I25.10 Atherosclerotic heart disease of native coronary artery without angina pectoris; Z98.891 History of uterine scar from previous surgery; Z90.49 Acquired absence of other specified parts of digestive tract; Y93.89 Activity, other specified; Y92.89 Other specified places as the place of occurrence of the external cause; Y99.8 Other external cause status; Z79.899 Other long term (current) drug therapy
CPT/HCPCS: 36415; 49083; 71045; 80048; 80053; 80076; 82948; 83036; 84484; 85025; 85027; 87071; 87205; 89051; 93005; 94640; 94664; G0008; J0885; J1756; J1940; J3490; Q2035; Q2038

== ENCOUNTER 2018-09-06 23:15 | Inpatient (IN) | payer OTHER ==
[~2018-09-06] VITALS: Ht 162.6 cm; Wt 59.6 kg
[~2018-09-06 23:15] MED LIST changes: -LEVO500T2 PO
[2018-09-07] MEDS ORDERED: ALBUMIN (HUMAN) 25% 50 ML IV ONE
[2018-09-07] MEDS ORDERED: FUROSEMIDE 10 MG/ML 4ML VIAL ONE
[2018-09-07 00:19] LABS: EOSINOPHILS % (AUTO) 2.6 % (0.0-8.0); HEMATOCRIT 27.9 % (36-48); LYMPHOCYTES % (AUTO) 12.8 % (21.0-51.0); MEAN CORPUSCULAR HEMOGLOBIN 30.2 pg (27.0-33.0); MEAN CORPUSCULAR HGB CONC 31.3 g/dL (32.0-36.0); MEAN CORPUSCULAR VOLUME 96.5 fL (79-99); MONOCYTES % (AUTO) 10.8 % (3.0-13.0); NEUTROPHILS % (AUTO) 72.8 % (40.0-77.0); PLATELET COUNT (AUTO) 315 K/uL (130-400); RED BLOOD CELL COUNT(AUTO) 2.89 MIL/uL (4.00-5.50); RED CELL DISTRIBUTION WIDTH 18.3 % (11.0-15.5); WHITE BLOOD COUNT (AUTO) 7.7 K/uL (4.8-10.8)
[2018-09-07 00:35] LABS: INR 1.02 (0.85-1.15); PROTHROMBIN TIME 10.7 SEC (9.6-11.6)
[2018-09-07 00:41] LABS: ALBUMIN 2.1 g/dL (3.5-5.0); BILIRUBIN,DIRECT 0.1 mg/dL (0.0-0.3); BILIRUBIN,TOTAL 1.1 mg/dL (0.2-1.0); CREATININE 5.9 mg/dL (0.5-1.5); TOTAL PROTEIN, SERUM 7.3 g/dL (6.0-8.3)
[2018-09-07 00:45] LABS: POTASSIUM 6.1 mmol/L (3.5-5.1)
[2018-09-07] MEDS ORDERED: MORPHINE SULFATE 4 MG/1ML SYG ONE (00:52)
[2018-09-07] MEDS ORDERED: DEXTROSE 50%-WATER 50 ML DISP.SYRIN IV ONE (01:22)
[2018-09-07] MEDS ORDERED: CALCIUM GLUCONATE 1 GM/10 ML VIAL IV ONE (01:22)
[2018-09-07] MEDS ORDERED: SODIUM BICARB 50MEQ 50ML VIAL ONE (01:22)
[2018-09-07] MEDS ORDERED: INSULIN HUMULIN R 100 UNIT/ML 3ML ONE (01:24)
[2018-09-07] MEDS ORDERED: SODIUM CHLORIDE 0.9% 100 ML IV ONE (01:26)
[2018-09-07] MEDS ORDERED: HALOPERIDOL LACTATE 5 MG/ML VIAL ONE (01:48)
[2018-09-07 03:00] VITALS: BP 146/75
[2018-09-07] MEDS ORDERED: ONDANSETRON HCL MDV 20ML 2 MG/ML VIAL IV PRN (03:00)
[2018-09-07] MEDS ORDERED: DEXTROSE 50%-WATER 50 ML DISP.SYRIN IV PRN (03:00)
[2018-09-07] MEDS ORDERED: GLUCAGON 1MG KIT 1 MG ML IM PRN (03:00)
[2018-09-07] MEDS ORDERED: ACETAMINOPHEN 325 MG TAB PO PRN (03:00)
[2018-09-07] MEDS: INSULIN HUMULIN R 100 UNIT/ML 3ML SQ SCH ×4 (06:36→21:00)
[2018-09-07 08:00] VITALS: BP 153/72
[2018-09-07] MEDS: FUROSEMIDE 10 MG/ML 4ML VIAL IV SCH ×2 (09:05→20:55)
[2018-09-07] MEDS: PANTOPRAZOLE SODIUM 40 MG TABLET.DR PO SCH (09:05)
[2018-09-07] MEDS: MORPHINE SULFATE 2 MG/ML 1ML SYG IV PRN ×3 (11:09→22:27)
[2018-09-07 11:49] VITALS: BP 133/66
[2018-09-07 12:31] LABS: BASOPHILS % (AUTO) 1.7 % (0.0-5.0); HEMATOCRIT 24.9 % (36-48); LYMPHOCYTES % (AUTO) 12.5 % (21.0-51.0); MEAN CORPUSCULAR HEMOGLOBIN 29.6 pg (27.0-33.0); MEAN CORPUSCULAR VOLUME 95.4 fL (79-99); MONOCYTES % (AUTO) 10.9 % (3.0-13.0); NEUTROPHILS % (AUTO) 70.9 % (40.0-77.0); NUCLEATED RED BLOOD CELLS 0.1 % (0.0-0.19); PLATELET COUNT (AUTO) 218 K/uL (130-400); RED BLOOD CELL COUNT(AUTO) 2.61 MIL/uL (4.00-5.50); RED CELL DISTRIBUTION WIDTH 17.6 % (11.0-15.5); WHITE BLOOD COUNT (AUTO) 5.1 K/uL (4.8-10.8)
[2018-09-07 12:46] LABS: CREATININE 6.1 mg/dL (0.5-1.5)
[2018-09-07 12:47] LABS: POTASSIUM 6.3 mmol/L (3.5-5.1)
[2018-09-07] MEDS ORDERED: COMPOUND IV MISC 1 EACH IVSOLN MISC PRN (13:15)
[2018-09-07] MEDS ORDERED: SODIUM POLYSTYRENE SULFONATE 15 GM/60 ML ML PO SCH (13:15)
[2018-09-07] MEDS ORDERED: EPOETIN ALFA 10,000 UNIT/ML VIAL SQ SCH (13:15)
[2018-09-07 13:21] LABS: ALBUMIN 1.9 g/dL (3.5-5.0); BILIRUBIN,TOTAL 1.1 mg/dL (0.2-1.0); TOTAL PROTEIN, SERUM 6.2 g/dL (6.0-8.3); TROPONIN I 0.04 ng/mL (0.00-0.06)
[2018-09-07 16:00] VITALS: BP 143/61
[2018-09-07 20:00] VITALS: BP 131/65
[2018-09-07 23:50] VITALS: BP 154/82
[2018-09-08 00:58] LABS: APPEARANCE,URINE Cloudy (CLEAR); BILIRUBIN,URINE Negative (NEGATIVE); COLOR,URINE Yellow (YELLOW); GLUCOSE, URINE (UA) Negative (NEGATIVE); KETONES,URINE Negative (NEGATIVE); LEUKOCYTE ESTERASE ,URINE Large (NEGATIVE); NITRATE,URINE Negative (NEGATIVE); OCCULT BLOOD,URINE Small (NEGATIVE); PH,URINE 5.5 (5.0-8.0); PROTEIN,URINE POS 1+ (NEGATIVE); UROBILINOGEN,URINE 0.2 mg/dL (0.2-1.0)
[2018-09-08 01:12] LABS: WBC,URINE >100 /HPF (0-1)
[2018-09-08 01:13] LABS: BACTERIA,URINE Moderate /HPF (None Seen); SQUAMOUS EPITHELIAL CELL,UR 0-2 /HPF (0-2)
[2018-09-08] MEDS: MORPHINE SULFATE 2 MG/ML 1ML SYG IV PRN ×2 (02:14→13:30)
[2018-09-08 04:00] VITALS: BP 142/80
[2018-09-08 05:49] LABS: BASOPHILS % (AUTO) 1.1 % (0.0-5.0); EOSINOPHILS % (AUTO) 4.1 % (0.0-8.0); HEMATOCRIT 24.9 % (36-48); MEAN CORPUSCULAR HEMOGLOBIN 30.6 pg (27.0-33.0); MEAN CORPUSCULAR HGB CONC 31.8 g/dL (32.0-36.0); MEAN CORPUSCULAR VOLUME 96.3 fL (79-99); MONOCYTES % (AUTO) 12.8 % (3.0-13.0); NUCLEATED RED BLOOD CELLS 0.1 % (0.0-0.19); PLATELET COUNT (AUTO) 267 K/uL (130-400); RED BLOOD CELL COUNT(AUTO) 2.58 MIL/uL (4.00-5.50); RED CELL DISTRIBUTION WIDTH 18.1 % (11.0-15.5); WHITE BLOOD COUNT (AUTO) 6.4 K/uL (4.8-10.8)
[2018-09-08 06:01] LABS: CREATININE 6.2 mg/dL (0.5-1.5); POTASSIUM 5.6 mmol/L (3.5-5.1)
[2018-09-08] MEDS: MORPHINE SULFATE 4 MG/1ML SYG IV PRN (06:15)
[2018-09-08] MEDS: INSULIN HUMULIN R 100 UNIT/ML 3ML SQ SCH ×4 (06:34→20:45)
[2018-09-08 08:15] VITALS: BP 120/70
[2018-09-08] MEDS ORDERED: LEVOFLOXACIN 250 MG/D5W 50ML 50 ML IV SCH (09:00)
[2018-09-08] MEDS: IRON SUCROSE COMPLEX 100 MG in SODIUM CHLORIDE 0.9% 50 ML IV SCH (09:44)
[2018-09-08] MEDS: FUROSEMIDE 10 MG/ML 4ML VIAL IV SCH ×2 (09:44→20:45)
[2018-09-08] MEDS: PANTOPRAZOLE SODIUM 40 MG TABLET.DR PO SCH (09:45)
[2018-09-08 11:38] VITALS: BP 150/71
[2018-09-08] MEDS: SODIUM POLYSTYRENE SULFONATE 15 GM/60 ML ML PO SCH (13:35)
[2018-09-08 16:59] VITALS: BP 156/77
[2018-09-08 20:00] VITALS: BP 145/80
[2018-09-09] VITALS (11 sets, daily range): BP systolic 120–154; BP diastolic 58–93
[2018-09-09] MEDS: MORPHINE SULFATE 2 MG/ML 1ML SYG IV PRN ×2 (00:08→06:15)
[2018-09-09 05:35] LABS: BASOPHILS % (AUTO) 1.1 % (0.0-5.0); EOSINOPHILS % (AUTO) 4.4 % (0.0-8.0); HEMATOCRIT 25.4 % (36-48); LYMPHOCYTES % (AUTO) 11.7 % (21.0-51.0); MEAN CORPUSCULAR HEMOGLOBIN 29.8 pg (27.0-33.0); MEAN CORPUSCULAR HGB CONC 30.9 g/dL (32.0-36.0); MEAN CORPUSCULAR VOLUME 96.2 fL (79-99); MONOCYTES % (AUTO) 13.8 % (3.0-13.0); NUCLEATED RED BLOOD CELLS 0.1 % (0.0-0.19); PLATELET COUNT (AUTO) 221 K/uL (130-400); RED BLOOD CELL COUNT(AUTO) 2.64 MIL/uL (4.00-5.50); WHITE BLOOD COUNT (AUTO) 6.3 K/uL (4.8-10.8)
[2018-09-09 05:54] LABS: CREATININE 6.1 mg/dL (0.5-1.5); POTASSIUM 5.2 mmol/L (3.5-5.1)
[2018-09-09] MEDS: INSULIN HUMULIN R 100 UNIT/ML 3ML SQ SCH ×3 (06:02→16:30)
[2018-09-09] MEDS: FUROSEMIDE 10 MG/ML 4ML VIAL IV SCH (08:29)
[2018-09-09] MEDS: PANTOPRAZOLE SODIUM 40 MG TABLET.DR PO SCH (08:29)
[2018-09-09] MEDS: SODIUM POLYSTYRENE SULFONATE 15 GM/60 ML ML PO SCH (10:15)
[2018-09-09] MEDS: MORPHINE SULFATE 4 MG/1ML SYG IV PRN (11:41)
[2018-09-09] MEDS: IRON SUCROSE COMPLEX 100 MG in SODIUM CHLORIDE 0.9% 50 ML IV SCH (11:41)
[2018-09-09 11:52] LABS: PH, BODY FLUID 7
[2018-09-09 12:27] LABS: GLUCOSE,BODY FLUID 104 mg/dL (1-40)
[2018-09-09 12:36] LABS: APPEARANCE BODY FLUID CLEAR (CLEAR); BODY FLUID RBC 47 /cu. mm.; BODY FLUID WBC 124 /cu. mm.; COLOR,BODY FLUID YELLOW (LT YELLOW); SPECIMENTYPE,BODY FLUID PARACENTESIS; TOTAL VOLUME,BODY FLUID 3700 mL
[2018-09-09 13:38] LABS: BF LYMPHOCYTE 46 %; BF MESOTHELIAL 40 %; BF MONOCYTE 11 %
[2018-09-09] MEDS ORDERED: LIDOCAINE HCL MPF 1% 5ML VIAL ONE (13:48)
[2018-09-09] MEDS ORDERED: LEVO250T59 PO (15:40)
[2018-09-09] MEDS ORDERED: AMLO10TA6 PO (15:50)
[2018-09-09] MEDS ORDERED: METO-391 PO (15:50)
[2018-09-09] MEDS ORDERED: SODIUM POLYSTYRENE SULFONATE 15 GM/60 ML ML PO SCH (16:00)
== END 2018-09-09 18:35 | disposition home or self-care (01) | DRG 433 ==
LOC: EDH 23:15 → EDHIP 23:16 → 3CH 09-07 03:08
PROVIDERS: ADMIT Internal Medicine; ATTEND Internal Medicine
PROC: 0W9G3ZZ Drainage of Peritoneal Cavity, Percutaneous Approach (ICD-10-PCS; principal; 2018-09-09)
DX: K74.60 Unspecified cirrhosis of liver (principal); J90 Pleural effusion, not elsewhere classified; R18.8 Other ascites; N39.0 Urinary tract infection, site not specified; N18.5 Chronic kidney disease, stage 5; I12.0 Hypertensive chronic kidney disease with stage 5 chronic kidney disease or end stage renal disease; Z53.29 Procedure and treatment not carried out because of patient's decision for other reasons; E11.22 Type 2 diabetes mellitus with diabetic chronic kidney disease; D63.1 Anemia in chronic kidney disease; E88.09 Other disorders of plasma-protein metabolism, not elsewhere classified; E87.5 Hyperkalemia; E87.70 Fluid overload, unspecified; R00.1 Bradycardia, unspecified; I25.10 Atherosclerotic heart disease of native coronary artery without angina pectoris; Z83.3 Family history of diabetes mellitus
CPT/HCPCS: 36415; 49083; 71045; 80048; 80053; 80076; 81001; 82140; 82550; 82945; 82948; 83615; 83690; 83874; 83880; 83986; 84132; 84157; 84484; 85025; 85610; 85730; 87071; 87205; 88108; 88305; 89051; 93005; 99291; J0610; J0885; J1630; J1756; J1815; J1940; J1956; J2270; J3490; J7070; P9047; Q2038

== ENCOUNTER 2018-09-30 21:38 | Inpatient (IN) | payer OTHER ==
[~2018-09-30] VITALS: Ht 152.4 cm; Wt 59.7 kg
[~2018-09-30 21:38] MED LIST changes: +AMLO10TA6 PO; -AMLO5TAB7 PO; +CEFD300C3 PO; +METO-391 PO
[2018-09-30 22:44] LABS: BASOPHILS % (AUTO) 0.7 % (0.0-5.0); EOSINOPHILS % (AUTO) 1.2 % (0.0-8.0); HEMATOCRIT 25.1 % (36-48); LYMPHOCYTES % (AUTO) 4.8 % (21.0-51.0); MEAN CORPUSCULAR HEMOGLOBIN 30.2 pg (27.0-33.0); MEAN CORPUSCULAR HGB CONC 30.3 g/dL (32.0-36.0); MEAN CORPUSCULAR VOLUME 99.6 fL (79-99); MONOCYTES % (AUTO) 8.6 % (3.0-13.0); NEUTROPHILS % (AUTO) 84.7 % (40.0-77.0); PLATELET COUNT (AUTO) 441 K/uL (130-400); RED BLOOD CELL COUNT(AUTO) 2.52 MIL/uL (4.00-5.50); RED CELL DISTRIBUTION WIDTH 17.6 % (11.0-15.5); WHITE BLOOD COUNT (AUTO) 14.6 K/uL (4.8-10.8)
[2018-09-30 23:03] LABS: ALBUMIN 1.7 g/dL (3.5-5.0); CREATININE 5.9 mg/dL (0.5-1.5); POTASSIUM 5.4 mmol/L (3.5-5.1); TOTAL PROTEIN, SERUM 7.1 g/dL (6.0-8.3)
[2018-09-30] MEDS ORDERED: FENTANYL CITRATE PF 50 MCG/1 ML 2ML VIAL ONE (23:18)
[2018-09-30 23:36] LABS: B-TYPE NATRIURETIC PEPTIDE 1500 pg/mL (0-100)
[2018-10-01] VITALS (11 sets, daily range): BP systolic 123–170; BP diastolic 65–82
[2018-10-01] MEDS ORDERED: NAPROXEN PO (01:16)
[2018-10-01] MEDS ORDERED: GLUCAGON 1MG KIT 1 MG ML IM PRN (02:15)
[2018-10-01] MEDS ORDERED: DEXTROSE 50%-WATER 50 ML DISP.SYRIN IV PRN (02:15)
[2018-10-01] MEDS ORDERED: ONDANSETRON HCL 4 MG/2 ML VIAL IV PRN (02:30)
[2018-10-01] MEDS ORDERED: MORPHINE SULFATE 2 MG/ML 1ML SYG ONE (02:53)
[2018-10-01] MEDS: ZOSYN 3.375GM+NS 50ML 50 ML IV SCH ×2 (05:37→16:30)
[2018-10-01 05:46] LABS: BASOPHILS % (AUTO) 0.7 % (0.0-5.0); EOSINOPHILS % (AUTO) 0.9 % (0.0-8.0); HEMATOCRIT 22.3 % (36-48); LYMPHOCYTES % (AUTO) 3.8 % (21.0-51.0); MEAN CORPUSCULAR HEMOGLOBIN 29.7 pg (27.0-33.0); MEAN CORPUSCULAR HGB CONC 30.4 g/dL (32.0-36.0); MEAN CORPUSCULAR VOLUME 97.6 fL (79-99); MONOCYTES % (AUTO) 7.8 % (3.0-13.0); NEUTROPHILS % (AUTO) 86.8 % (40.0-77.0); PLATELET COUNT (AUTO) 396 K/uL (130-400); RED BLOOD CELL COUNT(AUTO) 2.28 MIL/uL (4.00-5.50); RED CELL DISTRIBUTION WIDTH 17.1 % (11.0-15.5); WHITE BLOOD COUNT (AUTO) 13.6 K/uL (4.8-10.8)
[2018-10-01] MEDS: INSULIN HUMULIN R 100 UNIT/ML 3ML SQ SCH ×4 (05:51→21:00)
[2018-10-01 05:54] LABS: ALBUMIN 1.6 g/dL (3.5-5.0); BILIRUBIN,TOTAL 0.9 mg/dL (0.2-1.0); POTASSIUM 5.7 mmol/L (3.5-5.1); TOTAL PROTEIN, SERUM 6.6 g/dL (6.0-8.3)
[2018-10-01 06:07] LABS: INR 0.99 (0.85-1.15); PARTIAL THROMBOPLASTIN TIME 32.5 SEC (26.3-35.5); PROTHROMBIN TIME 10.4 SEC (9.6-11.6)
[2018-10-01 06:24] LABS: APPEARANCE,URINE Cloudy (CLEAR); BILIRUBIN,URINE Negative (NEGATIVE); COLOR,URINE Yellow (YELLOW); GLUCOSE, URINE (UA) Negative (NEGATIVE); KETONES,URINE Negative (NEGATIVE); LEUKOCYTE ESTERASE ,URINE Moderate (NEGATIVE); NITRATE,URINE Negative (NEGATIVE); OCCULT BLOOD,URINE Moderate (NEGATIVE); PROTEIN,URINE POS 2+ (NEGATIVE); UROBILINOGEN,URINE 0.2 mg/dL (0.2-1.0)
[2018-10-01 06:49] LABS: BACTERIA,URINE Moderate /HPF (None Seen); RBC,URINE 26-50 /HPF (0-1); WBC,URINE 51-100 /HPF (0-1)
[2018-10-01] MEDS ORDERED: AMLODIPINE BESYLATE 5 MG TAB PO SCH (08:00)
[2018-10-01] MEDS ORDERED: ENOXAPARIN SODIUM 30 MG/0.3 ML SQ SCH (09:00)
[2018-10-01] MEDS: FUROSEMIDE 40 MG TABLET PO SCH ×2 (09:00→21:10)
[2018-10-01] MEDS ORDERED: PANTOPRAZOLE 40 MG/VIAL IVP SCH (09:00)
[2018-10-01] MEDS ORDERED: METHYLPREDNISOLONE SOD SUCC 40MG/ML 1ML IVP SCH (09:15)
[2018-10-01] MEDS ORDERED: DiphenhydrAMINE HCL 50 MG/ML VIAL IV SCH (09:15)
[2018-10-01] MEDS: MORPHINE SULFATE 4 MG/1ML SYG IV PRN ×2 (11:41→23:27)
[2018-10-01] MEDS ORDERED: LIDOCAINE HCL 1% 20 ML VIAL ONE (12:00)
[2018-10-01] MEDS ORDERED: LIDOCAINE HCL 1% MDV 50ML VIAL ONE (13:42)
[2018-10-01] MEDS ORDERED: FENTANYL CITRATE PF 50 MCG/1 ML 2ML VIAL ONE (14:08)
[2018-10-01] MEDS ORDERED: SODIUM CHLORIDE 0.9% 250 ML IV ONE (18:21)
[2018-10-01] MEDS: MORPHINE SULFATE 2 MG/ML 1ML SYG IV PRN (19:13)
[2018-10-01] MEDS ORDERED: ALBUMIN (HUMAN) 25% 100 ML IV PRN (20:00)
[2018-10-01] MEDS ORDERED: SODIUM CHLORIDE 0.9% 1000ML 1,000 ML IV PRN (20:00)
[2018-10-01] MEDS ORDERED: 0.9% SODIUM CHLORIDE 250 ML IV BAG IV PRN (20:00)
[2018-10-01] MEDS: HEPARIN SODIUM 5000UNIT/ML 1ML VIAL IJ PRN (20:06)
[2018-10-02] MEDS: ZOSYN 3.375GM+NS 50ML 50 ML IV SCH ×2 (03:21→16:30)
[2018-10-02] MEDS: MORPHINE SULFATE 4 MG/1ML SYG IV PRN (03:23)
[2018-10-02 04:00] VITALS: BP 144/75
[2018-10-02 05:25] LABS: HEMATOCRIT 26.2 % (36-48); MEAN CORPUSCULAR HEMOGLOBIN 30.5 pg (27.0-33.0); MEAN CORPUSCULAR HGB CONC 32.3 g/dL (32.0-36.0); MEAN CORPUSCULAR VOLUME 94.6 fL (79-99); PLATELET COUNT (AUTO) 421 K/uL (130-400); RED BLOOD CELL COUNT(AUTO) 2.77 MIL/uL (4.00-5.50); RED CELL DISTRIBUTION WIDTH 16.5 % (11.0-15.5); WHITE BLOOD COUNT (AUTO) 11.9 K/uL (4.8-10.8)
[2018-10-02 05:38] LABS: CREATININE 4.5 mg/dL (0.5-1.5); POTASSIUM 4.9 mmol/L (3.5-5.1)
[2018-10-02] MEDS: INSULIN HUMULIN R 100 UNIT/ML 3ML SQ SCH ×4 (06:51→20:13)
[2018-10-02 08:06] VITALS: BP 153/74
[2018-10-02] MEDS ORDERED: PANTOPRAZOLE SODIUM 40 MG TABLET.DR PO SCH (09:00)
[2018-10-02] MEDS ORDERED: LISINOPRIL 40 MG TABLET PO SCH (09:00)
[2018-10-02 11:00] VITALS: BP 162/74
[2018-10-02] MEDS: HEPARIN SODIUM 5000UNIT/ML 1ML VIAL IJ PRN (11:07)
[2018-10-02] MEDS: PANTOPRAZOLE SODIUM 40 MG TABLET.DR PO SCH ×2 (12:49→12:57)
[2018-10-02] MEDS: LISINOPRIL 40 MG TABLET PO SCH ×2 (12:49→12:57)
[2018-10-02] MEDS: MORPHINE SULFATE 2 MG/ML 1ML SYG IV PRN ×2 (13:48→20:33)
[2018-10-02 16:22] VITALS: BP 133/78
[2018-10-02 20:00] VITALS: BP 159/73
[2018-10-03] VITALS: BP 160/90
[2018-10-03] MEDS: MORPHINE SULFATE 2 MG/ML 1ML SYG IV PRN ×4 (00:52→20:45)
[2018-10-03 04:00] VITALS: BP 175/86
[2018-10-03] MEDS: ZOSYN 3.375GM+NS 50ML 50 ML IV SCH (04:27)
[2018-10-03 06:24] LABS: HEMATOCRIT 25.5 % (36-48); MEAN CORPUSCULAR HEMOGLOBIN 29.9 pg (27.0-33.0); MEAN CORPUSCULAR HGB CONC 31.6 g/dL (32.0-36.0); MEAN CORPUSCULAR VOLUME 94.9 fL (79-99); PLATELET COUNT (AUTO) 359 K/uL (130-400); RED BLOOD CELL COUNT(AUTO) 2.69 MIL/uL (4.00-5.50); RED CELL DISTRIBUTION WIDTH 16.6 % (11.0-15.5); WHITE BLOOD COUNT (AUTO) 9.3 K/uL (4.8-10.8)
[2018-10-03 06:37] LABS: CREATININE 3.8 mg/dL (0.5-1.5); PHOSPHORUS 5.9 mg/dL (2.5-4.9); POTASSIUM 4.2 mmol/L (3.5-5.1)
[2018-10-03 07:00] VITALS: BP 173/73
[2018-10-03 07:24] LABS: EOSINOPHILS % (MANUAL) 2 % (1-6); LYMPHOCYTES % (MANUAL) 10 % (22-44); MAN.DIFF COMMENT-IMPRESSION MANUAL DIFFERENTIAL; MONOCYTES % (MANUAL) 6 % (2-9); SEGMENTED NEUTROPHILS % 82 % (40-70)
[2018-10-03 07:25] LABS: PLATELET MORPHOLOGY COMMENT ADEQUATE
[2018-10-03] MEDS ORDERED: CALCIUM CARBON 500MG CHEW TAB PO SCH (07:30)
[2018-10-03] MEDS: INSULIN HUMULIN R 100 UNIT/ML 3ML SQ SCH ×4 (07:30→20:47)
[2018-10-03] MEDS: LISINOPRIL 40 MG TABLET PO SCH (09:00)
[2018-10-03] MEDS: PANTOPRAZOLE SODIUM 40 MG TABLET.DR PO SCH (09:01)
[2018-10-03] MEDS: CALCIUM CARBONATE 500 MG TABLET PO SCH (09:01)
[2018-10-03] MEDS ORDERED: VANCOMYCIN PROTOCOL PER PHARMACY IV SCH (09:45)
[2018-10-03 11:00] VITALS: BP 153/77
[2018-10-03] MEDS: AMLODIPINE BESYLATE 5 MG TAB PO SCH (12:57)
[2018-10-03] MEDS: VANCOMYCIN 1GM+NS 250ML 250 ML IV SCH (12:57)
[2018-10-03 16:00] VITALS: BP 165/82
[2018-10-03 20:00] VITALS: BP 169/89
[2018-10-04] VITALS: BP 155/76
[2018-10-04] MEDS: MORPHINE SULFATE 4 MG/1ML SYG IV PRN ×5 (00:46→22:11)
[2018-10-04 04:00] VITALS: BP 145/77
[2018-10-04] MEDS: INSULIN HUMULIN R 100 UNIT/ML 3ML SQ SCH ×4 (06:34→21:00)
[2018-10-04] MEDS: CALCIUM CARBONATE 500 MG TABLET PO SCH (06:48)
[2018-10-04 08:00] VITALS: BP 156/74
[2018-10-04] MEDS: ACETAMINOPHEN 325 MG TAB PO PRN (08:40)
[2018-10-04] MEDS: AMLODIPINE BESYLATE 5 MG TAB PO SCH ×2 (09:00→09:15)
[2018-10-04] MEDS: PANTOPRAZOLE SODIUM 40 MG TABLET.DR PO SCH (09:00)
[2018-10-04] MEDS: LISINOPRIL 40 MG TABLET PO SCH (09:00)
[2018-10-04] MEDS: HEPARIN SODIUM 5000UNIT/ML 1ML VIAL IJ PRN (12:15)
[2018-10-04 16:00] VITALS: BP 169/89
[2018-10-04 19:03] VITALS: BP 166/78
[2018-10-04 23:04] VITALS: BP 161/76
[2018-10-05] MEDS: MORPHINE SULFATE 4 MG/1ML SYG IV PRN (01:45)
[2018-10-05 03:02] VITALS: BP 153/77
[2018-10-05 04:47] LABS: HEMATOCRIT 24.5 % (36-48); MEAN CORPUSCULAR HEMOGLOBIN 30.2 pg (27.0-33.0); MEAN CORPUSCULAR HGB CONC 31.9 g/dL (32.0-36.0); MEAN CORPUSCULAR VOLUME 94.7 fL (79-99); NUCLEATED RED BLOOD CELLS 0.1 % (0.0-0.19); PLATELET COUNT (AUTO) 342 K/uL (130-400); RED BLOOD CELL COUNT(AUTO) 2.59 MIL/uL (4.00-5.50); RED CELL DISTRIBUTION WIDTH 15.9 % (11.0-15.5)
[2018-10-05 04:54] LABS: CREATININE 3.2 mg/dL (0.5-1.5); POTASSIUM 3.6 mmol/L (3.5-5.1)
[2018-10-05] MEDS ORDERED: SODIUM BICARB [NEONATAL] 4.2% 10ML SYG ONE (06:39)
[2018-10-05] MEDS ORDERED: BUPIVACAINE/PF 0.25% 30ML VIAL IJ ONE (06:39)
[2018-10-05] MEDS ORDERED: LIDOCAINE HCL 1% 20 ML VIAL ONE (06:39)
[2018-10-05] MEDS ORDERED: NEOMY SULF/POLYMYXIN B SULFATE 1 ML AMPUL IR ONE (06:40)
[2018-10-05] MEDS ORDERED: PAPAVERINE HCL 30 MG/ML 2ML VIAL ONE (06:40)
[2018-10-05] MEDS: INSULIN HUMULIN R 100 UNIT/ML 3ML SQ SCH ×4 (07:30→21:00)
[2018-10-05 07:43] VITALS: BP 148/76
[2018-10-05] MEDS ORDERED: MORPHINE SULFATE 8 MG/ML VIAL ONE ×3 (08:16→18:53)
[2018-10-05] MEDS: CALCIUM CARBONATE 500 MG TABLET PO SCH (08:22)
[2018-10-05] MEDS: PANTOPRAZOLE SODIUM 40 MG TABLET.DR PO SCH (08:22)
[2018-10-05] MEDS: LISINOPRIL 40 MG TABLET PO SCH (08:22)
[2018-10-05] MEDS: AMLODIPINE BESYLATE 5 MG TAB PO SCH ×2 (08:22→08:24)
[2018-10-05] MEDS: VANCOMYCIN 1GM+NS 250ML 250 ML IV SCH (11:55)
[2018-10-05 11:56] VITALS: BP 134/72
[2018-10-05 11:59] VITALS: BP 134/72
[2018-10-05] MEDS ORDERED: COMPOUND IV MISC 1 EACH IVSOLN MISC PRN (12:15)
[2018-10-05] MEDS: EPOETIN ALFA 10,000 UNIT/ML VIAL SQ SCH (13:51)
[2018-10-05 16:00] VITALS: BP 149/71
[2018-10-05 19:00] VITALS: BP 153/85
[2018-10-05] MEDS: LACTULOSE 20 GM/30 ML UDCUP PO SCH (22:05)
[2018-10-05] MEDS ORDERED: MORPHINE SULFATE 5 MG/ML VIAL ONE (23:19)
[2018-10-06] VITALS (7 sets, daily range): BP systolic 134–163; BP diastolic 71–93
[2018-10-06] MEDS: INSULIN HUMULIN R 100 UNIT/ML 3ML SQ SCH ×4 (06:02→21:00)
[2018-10-06] MEDS: MORPHINE SULFATE 4 MG/1ML SYG IV PRN ×3 (06:03→18:39)
[2018-10-06 06:22] LABS: HEMATOCRIT 24.8 % (36-48); MEAN CORPUSCULAR HEMOGLOBIN 30.2 pg (27.0-33.0); MEAN CORPUSCULAR HGB CONC 31.7 g/dL (32.0-36.0); MEAN CORPUSCULAR VOLUME 95.4 fL (79-99); PLATELET COUNT (AUTO) 335 K/uL (130-400); RED CELL DISTRIBUTION WIDTH 15.8 % (11.0-15.5); WHITE BLOOD COUNT (AUTO) 9.3 K/uL (4.8-10.8)
[2018-10-06 06:27] LABS: CREATININE 3.9 mg/dL (0.5-1.5); POTASSIUM 3.9 mmol/L (3.5-5.1)
[2018-10-06] MEDS: AMLODIPINE BESYLATE 5 MG TAB PO SCH ×2 (09:15→09:18)
[2018-10-06] MEDS: CALCIUM CARBONATE 500 MG TABLET PO SCH (09:16)
[2018-10-06] MEDS: IRON SUCROSE COMPLEX 100 MG in SODIUM CHLORIDE 0.9% 50 ML IV SCH (09:16)
[2018-10-06] MEDS: LACTULOSE 20 GM/30 ML UDCUP PO SCH ×2 (09:17→21:40)
[2018-10-06] MEDS: ACETAMINOPHEN 325 MG TAB PO PRN (09:17)
[2018-10-06] MEDS: LISINOPRIL 40 MG TABLET PO SCH (09:18)
[2018-10-06] MEDS: PANTOPRAZOLE SODIUM 40 MG TABLET.DR PO SCH (09:18)
[2018-10-06] MEDS ORDERED: MORPHINE SULFATE 5 MG/ML VIAL ONE (10:00)
[2018-10-06] MEDS: EPOETIN ALFA 10,000 UNIT/ML VIAL SQ SCH (12:00)
[2018-10-06] MEDS ORDERED: MORPHINE SULFATE 8 MG/ML VIAL ONE (23:56)
[2018-10-07] VITALS (26 sets, daily range): BP systolic 98–151; BP diastolic 47–78
[2018-10-07] MEDS: CALCIUM CARBONATE 500 MG TABLET PO SCH (05:58)
[2018-10-07] MEDS: INSULIN HUMULIN R 100 UNIT/ML 3ML SQ SCH ×4 (05:58→20:54)
[2018-10-07 07:28] LABS: EOSINOPHILS % (AUTO) 2.5 % (0.0-8.0); HEMATOCRIT 23.2 % (36-48); LYMPHOCYTES % (AUTO) 9.7 % (21.0-51.0); MEAN CORPUSCULAR HEMOGLOBIN 30.8 pg (27.0-33.0); MEAN CORPUSCULAR HGB CONC 32.6 g/dL (32.0-36.0); MEAN CORPUSCULAR VOLUME 94.6 fL (79-99); MONOCYTES % (AUTO) 12.7 % (3.0-13.0); NEUTROPHILS % (AUTO) 74.1 % (40.0-77.0); PLATELET COUNT (AUTO) 350 K/uL (130-400); RED BLOOD CELL COUNT(AUTO) 2.45 MIL/uL (4.00-5.50); RED CELL DISTRIBUTION WIDTH 15.7 % (11.0-15.5); WHITE BLOOD COUNT (AUTO) 9.2 K/uL (4.8-10.8)
[2018-10-07 07:33] LABS: CREATININE 4.6 mg/dL (0.5-1.5)
[2018-10-07] MEDS: LACTULOSE 20 GM/30 ML UDCUP PO SCH ×2 (08:26→20:54)
[2018-10-07] MEDS: PANTOPRAZOLE SODIUM 40 MG TABLET.DR PO SCH (08:26)
[2018-10-07] MEDS: AMLODIPINE BESYLATE 5 MG TAB PO SCH ×2 (08:27→08:28)
[2018-10-07] MEDS: IRON SUCROSE COMPLEX 100 MG in SODIUM CHLORIDE 0.9% 50 ML IV SCH (08:28)
[2018-10-07] MEDS: LISINOPRIL 40 MG TABLET PO SCH (08:28)
[2018-10-07] MEDS: VANCOMYCIN 1GM+NS 250ML 250 ML IV SCH (10:07)
[2018-10-07] MEDS ORDERED: THROMBIN-JMI 5000 UNIT/VIAL TP ONE (10:17)
[2018-10-07] MEDS ORDERED: PAPAVERINE HCL 30 MG/ML 2ML VIAL ONE (10:17)
[2018-10-07] MEDS ORDERED: NEOMY SULF/POLYMYXIN B SULFATE 1 ML AMPUL IR ONE (10:17)
[2018-10-07] MEDS ORDERED: ROPIVACAINE 0.5% 5MG/ML 30ML IJ ONE (10:18)
[2018-10-07] MEDS ORDERED: LIDOCAINE HCL 2% 20ML ONE (10:19)
[2018-10-07] MEDS ORDERED: MIDAZOLAM HCL 1 MG/ML 2ML VIAL ONE (10:20)
[2018-10-07] MEDS ORDERED: LIDOCAINE HCL 1% 20 ML VIAL ONE (10:57)
[2018-10-07] MEDS ORDERED: LIDOCAINE HCL MDV 0.5% 50ML VIAL IJ ONE (10:57)
[2018-10-07] MEDS ORDERED: FENTANYL CITRATE PF 50 MCG/1 ML 2ML VIAL ONE ×2 (11:00→11:22)
[2018-10-07] MEDS ORDERED: PROPOFOL 10 MG/ML 20ML VIAL IV ONE (11:33)
[2018-10-07] MEDS: EPOETIN ALFA 10,000 UNIT/ML VIAL SQ SCH (12:00)
[2018-10-08] VITALS (7 sets, daily range): BP systolic 154–180; BP diastolic 72–88
[2018-10-08] MEDS: MORPHINE SULFATE 2 MG/ML 1ML SYG IV PRN (01:17)
[2018-10-08] MEDS: ACETAMINOPHEN 325 MG TAB PO PRN ×2 (04:27→18:21)
[2018-10-08 04:50] LABS: HEMATOCRIT 24.8 % (36-48); MEAN CORPUSCULAR HEMOGLOBIN 29.3 pg (27.0-33.0); MEAN CORPUSCULAR HGB CONC 30.6 g/dL (32.0-36.0); MEAN CORPUSCULAR VOLUME 95.5 fL (79-99); PLATELET COUNT (AUTO) 341 K/uL (130-400); RED CELL DISTRIBUTION WIDTH 15.5 % (11.0-15.5)
[2018-10-08 04:57] LABS: CREATININE 5.2 mg/dL (0.5-1.5)
[2018-10-08] MEDS: INSULIN HUMULIN R 100 UNIT/ML 3ML SQ SCH ×4 (06:35→20:31)
[2018-10-08] MEDS: CALCIUM CARBONATE 500 MG TABLET PO SCH (06:35)
[2018-10-08] MEDS ORDERED: CADEXOMER IODINE 40 GM GEL TP PRN (06:45)
[2018-10-08] MEDS: LACTULOSE 20 GM/30 ML UDCUP PO SCH ×2 (09:00→20:30)
[2018-10-08] MEDS: AMLODIPINE BESYLATE 5 MG TAB PO SCH ×2 (09:15→13:41)
[2018-10-08] MEDS: EPOETIN ALFA 10,000 UNIT/ML VIAL SQ SCH (12:00)
[2018-10-08] MEDS: IRON SUCROSE COMPLEX 100 MG in SODIUM CHLORIDE 0.9% 50 ML IV SCH (13:41)
[2018-10-08] MEDS: PANTOPRAZOLE SODIUM 40 MG TABLET.DR PO SCH (13:41)
[2018-10-08] MEDS: LISINOPRIL 40 MG TABLET PO SCH (13:41)
[2018-10-08] MEDS ORDERED: HONEY 1 APPL/ML TUBE TP SCH (17:15)
[2018-10-09 03:20] VITALS: BP 165/70
[2018-10-09] MEDS: ACETAMINOPHEN 325 MG TAB PO PRN (05:39)
[2018-10-09 05:47] LABS: BASOPHILS % (AUTO) 0.6 % (0.0-5.0); EOSINOPHILS % (AUTO) 1.2 % (0.0-8.0); HEMATOCRIT 25.3 % (36-48); LYMPHOCYTES % (AUTO) 5.9 % (21.0-51.0); MEAN CORPUSCULAR HEMOGLOBIN 30.2 pg (27.0-33.0); MEAN CORPUSCULAR HGB CONC 31.9 g/dL (32.0-36.0); MEAN CORPUSCULAR VOLUME 94.9 fL (79-99); MONOCYTES % (AUTO) 10.3 % (3.0-13.0); PLATELET COUNT (AUTO) 347 K/uL (130-400); RED BLOOD CELL COUNT(AUTO) 2.66 MIL/uL (4.00-5.50); RED CELL DISTRIBUTION WIDTH 15.7 % (11.0-15.5); WHITE BLOOD COUNT (AUTO) 12.2 K/uL (4.8-10.8)
[2018-10-09 05:58] LABS: CREATININE 3.4 mg/dL (0.5-1.5); POTASSIUM 3.3 mmol/L (3.5-5.1)
[2018-10-09] MEDS: INSULIN HUMULIN R 100 UNIT/ML 3ML SQ SCH ×3 (06:00→16:30)
[2018-10-09] MEDS: CALCIUM CARBONATE 500 MG TABLET PO SCH (06:28)
[2018-10-09 08:44] VITALS: BP 153/70
[2018-10-09] MEDS: LACTULOSE 20 GM/30 ML UDCUP PO SCH ×2 (09:00→10:09)
[2018-10-09] MEDS: VANCOMYCIN 1GM+NS 250ML 250 ML IV SCH (10:00)
[2018-10-09] MEDS: AMLODIPINE BESYLATE 5 MG TAB PO SCH (10:09)
[2018-10-09] MEDS: PANTOPRAZOLE SODIUM 40 MG TABLET.DR PO SCH (10:09)
[2018-10-09] MEDS: LISINOPRIL 40 MG TABLET PO SCH (10:09)
[2018-10-09] MEDS: IRON SUCROSE COMPLEX 100 MG in SODIUM CHLORIDE 0.9% 50 ML IV SCH (10:22)
[2018-10-09 12:07] VITALS: BP 158/76
[2018-10-09] MEDS ORDERED: CLIN300C9 PO (12:27)
[2018-10-09 16:23] VITALS: BP 143/77
[2018-10-09 19:48] VITALS: BP 155/78
== END 2018-10-09 21:30 | disposition home or self-care (01) | DRG 981 ==
LOC: EDH 21:38 → EDHIP 21:39 → 3DH 10-01 00:12
PROVIDERS: ADMIT Internal Medicine; ATTEND Internal Medicine
PROC: 02H633Z Insertion of Infusion Device into Right Atrium, Percutaneous Approach (ICD-10-PCS; principal; 2018-10-01)
PROC: 0W9G3ZZ Drainage of Peritoneal Cavity, Percutaneous Approach (ICD-10-PCS; 2018-10-01)
PROC: B2141ZZ Fluoroscopy of Right Heart using Low Osmolar Contrast (ICD-10-PCS; 2018-10-01)
PROC: B244ZZZ Ultrasonography of Right Heart (ICD-10-PCS; 2018-10-01)
PROC: 5A1D70Z Performance of Urinary Filtration, Intermittent, Less than 6 Hours Per Day (ICD-10-PCS; 2018-10-01)
PROC: 30233N1 Transfusion of Nonautologous Red Blood Cells into Peripheral Vein, Percutaneous Approach (ICD-10-PCS; 2018-10-01)
PROC: 5A1D70Z Performance of Urinary Filtration, Intermittent, Less than 6 Hours Per Day (ICD-10-PCS; 2018-10-02)
PROC: 5A1D70Z Performance of Urinary Filtration, Intermittent, Less than 6 Hours Per Day (ICD-10-PCS; 2018-10-04)
PROC: 03150JD Bypass Right Axillary Artery to Upper Arm Vein with Synthetic Substitute, Open Approach (ICD-10-PCS; 2018-10-07)
PROC: 5A1D70Z Performance of Urinary Filtration, Intermittent, Less than 6 Hours Per Day (ICD-10-PCS; 2018-10-08)
DX: I12.0 Hypertensive chronic kidney disease with stage 5 chronic kidney disease or end stage renal disease (principal); L89.303 Pressure ulcer of unspecified buttock, stage 3; N18.6 End stage renal disease; R18.8 Other ascites; E11.52 Type 2 diabetes mellitus with diabetic peripheral angiopathy with gangrene; L97.119 Non-pressure chronic ulcer of right thigh with unspecified severity; K74.60 Unspecified cirrhosis of liver; E11.621 Type 2 diabetes mellitus with foot ulcer; E11.22 Type 2 diabetes mellitus with diabetic chronic kidney disease; D72.829 Elevated white blood cell count, unspecified; D63.1 Anemia in chronic kidney disease; E11.622 Type 2 diabetes mellitus with other skin ulcer; E87.70 Fluid overload, unspecified; I25.10 Atherosclerotic heart disease of native coronary artery without angina pectoris; E78.5 Hyperlipidemia, unspecified; B95.62 Methicillin resistant Staphylococcus aureus infection as the cause of diseases classified elsewhere; L97.509 Non-pressure chronic ulcer of other part of unspecified foot with unspecified severity; Z99.2 Dependence on renal dialysis; Z93.3 Colostomy status; Y92.89 Other specified places as the place of occurrence of the external cause; Z83.3 Family history of diabetes mellitus
CPT/HCPCS: 36415; 36430; 36558; 49083; 71045; 77001; 80048; 80053; 80202; 81001; 82550; 82948; 83880; 84100; 84484; 85025; 85027; 85610; 85730; 86850; 86900; 86901; 86922; 87040; 87070; 87076; 87077; 87088; 87186; 90935; 93005; 93926; 93931; 93971; C1750; C9113; J0885; J1200; J1644; J1756; J2250; J2270; J2440; J2543; J2704; J2795; J2920; J3010; J3370; J3490; J7030; P9016

== ENCOUNTER 2018-11-04 22:42 | Emergency (ER) | payer OTHER ==
[~2018-11-04 22:42] MED LIST changes: +CALCIUM CHLORIDE 100 MG/ML 10 ML SYG IVP ONE; -CEFD300C3 PO; +CLIN300C9 PO; +EPINEPHRINE 0.1 MG/ML 10 ML SYG IVP ONE; -METO-409 PO; +NAPROXEN PO; +SODIUM BICARB 8.4% 50ML SYRINGE IVP ONE
[2018-11-04] MEDS ORDERED: ETOMIDATE 2 MG/ML 10 ML VIAL ONE (22:58)
== END 2018-11-05 01:01 | disposition expired ==
LOC: EDH 22:42
DX: I46.9 Cardiac arrest, cause unspecified (principal); I25.10 Atherosclerotic heart disease of native coronary artery without angina pectoris; E11.22 Type 2 diabetes mellitus with diabetic chronic kidney disease; I12.9 Hypertensive chronic kidney disease with stage 1 through stage 4 chronic kidney disease, or unspecified chronic kidney disease; N18.9 Chronic kidney disease, unspecified
CPT/HCPCS: 31500; 92950; 99291; J0171; J3490 ×3